=== PATIENT | male | born 1960 | race Caucasian/White ===

== ENCOUNTER → 2019-01-24 | Outpatient (CLI) | payer SELFPAY ==
[~2019-01-24] MED LIST: DICL50TA4 PO
--- NOTE | 2019-01-24 12:26 | Diagnostic Imaging Report ---
PROCEDURE: CT urinary tract, rule out kidney stone. TECHNIQUE: Multiple contiguous axial images were obtained through the abdomen and pelvis without the use of intravenous contrast. Auto Exposure Controls were utilized during the CT exam to meet ALARA standards for radiation dose reduction. INDICATION: Left flank pain. No radiodense left-sided ureteral stone is found. There is some swelling at the level of left ureterovesical junction which may reflect edema from recently passed stone or could reflect a distortion owing to an underlying ureterocele. The area in question measuring 1.6 cm in diameter. The prostate is enlarged and indents the bladder base. There is mild left-sided hydroureteronephrosis. Intrarenal stone within the upper pole calyx of left kidney measured 3 mm. The unobstructed right kidney is without stone. Spleen, adrenals and pancreas are unremarkable. The gallbladder and liver unremarkable. There is no bowel obstruction. No fluid collection. IMPRESSION: 1. Mild left hydroureteronephrosis. There is an intrarenal stone in the left kidney nonobstructing. No opaque ureteral or bladder stone. Distortion of the parenchyma and morphology at the level of the left ureterovesical junction may reflect an underlying ureterocele or the sequelae of some swelling from recently passed stone. 2. Negative right kidney. No other significant abnormality. Dictated by: Dictated on workstation # [id number]
== END ==
LOC: RAD 11:50
PROVIDERS: ATTEND Nurse Practitioner Family
DX: N13.2 Hydronephrosis with renal and ureteral calculous obstruction (principal)
CPT/HCPCS: 74176

== ENCOUNTER → 2021-04-14 | Outpatient (CLI) | payer SELFPAY ==
--- NOTE | 2021-04-14 15:50 | Diagnostic Imaging Report ---
EXAMINATION: CT abdomen and pelvis without contrast. TECHNIQUE: Multiple contiguous axial images were obtained through the abdomen and pelvis without the use of intravenous contrast. All CT scans use one or more of the following dose optimizing techniques: automated exposure control, MA and/or KvP adjustment based on patient size and exam type or iterative reconstruction. HISTORY: Hematuria COMPARISON: 01/24/2019 FINDINGS: Limited views of the lower thorax are unremarkable. The liver is normal without focal lesion. There is no biliary ductal dilation. Gallbladder is normal. Pancreas is normal. Spleen is normal. Adrenal glands are normal. There is severe left hydroureteronephrosis. No obstructing stone is seen. There is a 4.8 x 3.1 cm mass-like nodule near the trigone of the bladder obstructing the left ureteral orifice. Right kidney is normal. Visualized bowel is normal in caliber without obstruction or inflammation. No free fluid or air. No abdominal or pelvic lymphadenopathy. Aorta is normal in caliber without aneurysm. There are no suspicious osseus lesions. IMPRESSION: 1. Severe left hydroureteronephrosis due to an obstructing mass-like lesion at the left ureteral orifice concerning for a bladder malignancy. Cystoscopy recommended for further evaluation. Report given to nurse (Mariluz) at 3:49 PM 04/14/2021/cb Report faxed to Dr. Caceres at 3:49 PM 04/14/2021/cb Dictated by: Dictated on workstation # [id number]
== END ==
LOC: RAD 14:52
PROVIDERS: ATTEND Urology
DX: N13.1 Hydronephrosis with ureteral stricture, not elsewhere classified (principal); Z87.442 Personal history of urinary calculi
CPT/HCPCS: 74176

== ENCOUNTER → 2021-08-23 | Outpatient (CLI) | payer OTHER ==
[~2021-08-23] MED LIST changes: +CATHETER FLUSH 10 ML SYR IV PRN; +HOLD METFORMIN - RECEIVED CONTRAST 20 ML VIAL IV SCH; +IOHEXOL 350 MG/ML 100 ML (OMNIPAQUE 350) VIAL IV ONE; +NS 100 ML (IVPB) BAG IV ONE
--- NOTE | 2021-08-23 13:53 | Diagnostic Imaging Report ---
Procedure: CT chest with contrast, CT abdomen and pelvis with and without contrast. Technique: Pre and post intravenous contrast axial imaging of the abdomen and pelvis and post contrast axial imaging of the chest were performed. Auto Exposure Controls were utilized during the CT exam to meet ALARA standards for radiation dose reduction. Date: August 23, 2021. Indication: 61-year-old male, history of urinary bladder cancer. Evaluation for metastatic disease. Comparison: CT abdomen and pelvis April 14, 2021. CT abdomen and pelvis June 22, 2021. CT chest April 14, 2016. CT chest, abdomen and pelvis May 24, 2021. Findings: There are mild upper lobe predominant findings of centrilobular emphysema. There is a 4 mm calcified right upper lobe granuloma on axial image 70. There is a partially calcified pleural-based right upper lobe pulmonary nodule measuring 7 mm in size on axial image 77. There is a pleurally based noncalcified right lower lobe pulmonary nodule measuring 8 mm in size on axial image 113. This is unchanged since May 24, 2021. There is a 6 mm pleural-based left upper lobe pulmonary nodule on axial image 77 which is unchanged. There is an additional 6 mm pleural-based unchanged left upper lobe pulmonary nodule on axial image 99. There is a stable 5 mm left upper lobe pulmonary nodule on axial image 41. There is no new or enlarging pulmonary nodule. There is no otherwise noted focal airspace consolidation. There is no pneumothorax. There is no pleural effusion. The central airways are patent. There are calcified right hilar and subcarinal lymph nodes. There is no noncalcified abnormally enlarged mediastinal, hilar, or axillary lymph node meeting CT size criteria for adenopathy. The heart is not enlarged. There is no pericardial effusion. There is no identified central pulmonary embolus. The liver is unremarkable in size and contour. There is a low-attenuation lesion in the left lobe of liver on axial image 118 which measures 1.1 m in size. Internal attenuation is technically indeterminate 22 Hounsfield units. This is unchanged since comparison exam and previously had an internal attenuation value diagnostic for a benign cyst. The gallbladder is unremarkable. No biliary ductal dilation. The main pancreatic duct is not abnormally dilated. Unremarkable appearance of the pancreatic parenchyma. The spleen is not enlarged. The adrenal glands are unremarkable. There is a left urostomy tube. There is no faviola hydronephrosis. There is an irregular mass along the posterior and left-sided urinary bladder measuring approximately 7.4 x 4.6 cm in axial dimension. The left-sided nephrostomy tube is newly placed since May 24, 2021. There is a large volume colonic stool. The colon is mildly distended. There is no free intraperitoneal air. There is no drainable fluid collection. There is no free pelvic fluid. There are atherosclerotic calcifications. There is a left retroperitoneal lymph node on axial image 145 measuring 12 mm in short axis. There is a 2 mm sclerotic lesion of the right inferior pubic ramus which is indeterminate on axial image 249. This does appear unchanged. There is osteoarthritis of both hips. There is a 5 mm sclerotic lesion of the left iliac bone which is unchanged in axial image 201. There is a sclerotic lesion in the left humeral head on axial image 17 measuring 5 mm in size which is technically indeterminate although appears very high in attenuation and is suspected to most likely reflect a benign bone island. The additional sclerotic bone lesions mentioned above are stable since at least January 24, 2019. Impression: 1. Large mass in the urinary bladder consistent with provided history of urinary bladder malignancy. This appears notably increased in size since May 24, 2021. 2. 12 mm short axis left retroperitoneal lymph node which is indeterminate although concerning for metastatic rodrigo disease. 3. Interval placement of left-sided nephrostomy tube. 4. Very small sclerotic lesions of the left iliac bone and right inferior pubic ramus which are indeterminate although stable since January 24, 2019. 5. Stable multiple bilateral pulmonary nodules. No new or enlarging pulmonary nodule. Dictated by: Dictated on workstation # [id number]
--- NOTE | 2021-08-23 15:04 | Diagnostic Imaging Report ---
INDICATION: Bladder neoplasm. Patient was administered 24.7 mCi technetium 99m MDP intravenously and whole-body imaging was performed after a three-hour delay. No prior bone scans are available for comparison. There is normal uptake of activity by the axial and appendicular skeleton. There is uptake by both kidneys with excretion to urinary bladder. No suspicious uptake is identified to suggest osseous metastatic disease. IMPRESSION: No scintigraphic evidence of osseous metastatic disease. Dictated by: Dictated on workstation # [id number]
== END ==
LOC: CARD 11:00
PROVIDERS: ATTEND Internal Medicine Hematology & Oncology
DX: C67.9 Malignant neoplasm of bladder, unspecified (principal); R91.8 Other nonspecific abnormal finding of lung field; M89.9 Disorder of bone, unspecified
CPT/HCPCS: 71260; 74178; 78306; A9503

== ENCOUNTER 2021-08-31 05:38 | Outpatient (CLI) | payer SELFPAY ==
[~2021-08-31] VITALS: Ht 185.5 cm; Wt 75.9 kg
[~2021-08-31 05:38] MED LIST changes: -CATHETER FLUSH 10 ML SYR IV PRN; -HOLD METFORMIN - RECEIVED CONTRAST 20 ML VIAL IV SCH; -IOHEXOL 350 MG/ML 100 ML (OMNIPAQUE 350) VIAL IV ONE; -NS 100 ML (IVPB) BAG IV ONE
[2021-08-31] MEDS ORDERED: CIPR-225 PO (09:55)
[2021-09-01] MEDS ORDERED: ACHD5005 PO (10:15)
== END 2021-08-31 10:14 | disposition home or self-care (01) ==
LOC: PREOP 05:38
PROVIDERS: ATTEND Surgery
DX: Z01.818 Encounter for other preprocedural examination (principal)

== ENCOUNTER 2021-09-01 10:02 | Day surgery (SDC) | payer OTHER ==
[2021-09-01] VITALS (8 sets, daily range): BP systolic 124–146; BP diastolic 75–87
[~2021-09-01] VITALS: Ht 185.5 cm; Wt 75.9 kg
[~2021-09-01 10:02] MED LIST changes: +CIPR-225 PO
[2021-09-01] MEDS ORDERED: morphine INJ 10 MG/ML 1ML (SYR OR VIAL) IVP PRN (10:15)
[2021-09-01] MEDS ORDERED: HYDROcodone/APAP 5 MG/325 MG (LORTAB) TAB PO ONE (10:15)
[2021-09-01] MEDS ORDERED: CLINDAMYCIN 600 MG/50 ML IVPB 50 ML IV ONE (10:15)
[2021-09-01] MEDS ORDERED: ONDANSETRON 4 MG/2 ML (SDV) Z0FRAN IVP PRN ×2 (10:15→12:45)
[2021-09-01] MEDS ORDERED: ACHD5005 PO (10:15)
[2021-09-01] MEDS ORDERED: LACTATED RINGERS 1,000 ML IV PRN (10:15)
[2021-09-01] MEDS ORDERED: ACETAMINOPHEN 325 MG TABLET PO PRN (10:15)
--- NOTE | 2021-09-01 10:16 | Discharge Inst-Surgical ---
D/C Lap Instructions-KIDO Reconcile Patient Problems Problems Reviewed?: Yes New, Converted, or Re-Newed RX: RX on Chart Follow Up Appt as needed Activity as tolerated No driving for 24 hours No driving while on pain medications Incentive Spirometry use every 2 hours while awake Regular Diet Symptoms to Report: Fever over 101 degree F, Nausea/Vomiting Infection Signs and Symptoms to report: Increased redness, Foul odor of wound, Increased drainage Bathing instructions: May shower Operative Area Clean/Dry; Keep incision clean/dry If any problems/questions: Contact your physician or go to Emergency Room JEEVAN GRANT APRN Sep 01, 2021 10:16
--- NOTE | 2021-09-01 10:17 | Progress Note-Pre Operative ---
Pre-Operative Progress Note H&P Reviewed The H&P was reviewed, patient examined and no changes noted. Date Seen by Provider: Sep 01, 2021 Time Seen by Provider: 10:15 Date H&P Reviewed: Sep 01, 2021 Time H&P Reviewed: 10:10 Pre-Operative Diagnosis: Bladder cancer JEEVAN GRANT APRN Sep 01, 2021 10:17
[2021-09-01] MEDS ORDERED: LIDOCAINE/EPI 1%-1:100,000 (XYLOCAINE) 20ML ONE (10:57)
[2021-09-01] MEDS ORDERED: HEParin (CENTRAL IV FLUSH) 500 UNIT/5 ML SYR ONE (10:57)
[2021-09-01] MEDS ORDERED: 0.9% SODIUM CHLORIDE PF INJ 20 ML VIAL ONE (10:57)
[2021-09-01] MEDS ORDERED: fentaNYL INJ 100 MCG/2 ML AMP ONE (11:21)
[2021-09-01] MEDS ORDERED: PROPOFOL INJECTION 50 ML IV ONE (11:21)
[2021-09-01] MEDS ORDERED: MIDAZOLAM 2 MG/2 ML (VERSED) VIAL ONE (11:22)
[2021-09-01] MEDS ORDERED: morphine INJ 10 MG/ML 1ML (SYR OR VIAL) IVP ONE (12:45)
[2021-09-01] MEDS ORDERED: MEPERIDINE (DEMEROL) INJ 50 MG/ML IVP ONE (12:45)
--- NOTE | 2021-09-01 13:18 | Diagnostic Imaging Report ---
INDICATION: POST GROSHONG PLACEMENT. COMPARISON: None FINDINGS: Single frontal view of the chest demonstrates normal heart size and pulmonary vascularity. The lungs are well aerated and clear. No large pleural effusion or pneumothorax is seen. The visualized osseous structures show no acute abnormalities. Left subclavian Port-A-Cath is identified with tip in the lower SVC. IMPRESSION: 1. Left-sided subclavian Port-A-Cath. No pneumothorax. Dictated by: Dictated on workstation # [id number]
--- NOTE | 2021-09-01 13:53 | Diagnostic Imaging Report ---
INDICATION: Fluoroscopy for Groshong catheter placement. TIME OF EXAM: 12:31 PM Fluoroscopy was provided in the OR during Groshong catheter placement. 9 seconds of fluoroscopic time was utilized. Single image was obtained showing a Groshong catheter overlying the SVC right atrial junction. IMPRESSION: Fluoroscopy for Groshong catheter placement. Dictated by: Dictated on workstation # [id number]
--- NOTE | 2021-09-01 17:07 | OPERATIVE REPORT ---
DATE OF SERVICE: 09/01/2021 PREOPERATIVE DIAGNOSIS: Bladder cancer. POSTOPERATIVE DIAGNOSIS: Bladder cancer. PROCEDURE: Placement of left subclavian Groshong implantable catheter under fluoroscopy. SURGEON: Sana Draper MD. SET UP / OPERATOR: Teja Burgess APRN. ANESTHESIA: Monitored anesthesia care with local. ESTIMATED BLOOD LOSS: Minimal. FINDINGS: Catheter tip at superior vena caval -- right atrial junction. DISPOSITION: The patient tolerated the procedure well. INDICATIONS: The patient is a 61-year-old male in need of a Groshong implantable catheter for chemotherapy. He was diagnosed with a bladder cancer in the past two months and did undergo cystoscopy and tumor removal. He has been seeing a different oncologist and different options were given and he decided to proceed with chemotherapy and radiation. DESCRIPTION OF PROCEDURE: The patient was brought to the operating room, laid supine on the table. After adequate IV pain and sedative medications and monitored anesthesia care, the chest and neck were prepped and draped in standard surgical fashion. A 1% lidocaine with epinephrine was then used to anesthetize the overlying skin in the left subclavian region. The left subclavian vein was then cannulated with drawing of venous blood. The guidewire was then inserted under fluoroscopy. A skin incision was then made using a 15 blade and the dilator and sheath were then placed over the guidewire. The guidewire and the dilator were then removed and the Groshong catheter placed through the sheath until the catheter tip was at the superior vena caval -- right atrial junction. The inner wire within the catheter was then removed and the catheter cut down to size and port placed onto the catheter. The chest reservoir was then created by extending the skin incision laterally and a plane created between the subcutaneous fat and anterior pectoralis fascia. Good hemostasis was observed. The port was then placed onto the catheter. The port was then placed into the reservoir and sutured to the anterior pectoralis fascia using interrupted 3-0 Vicryl sutures. The subcutaneous tissue was then reapproximated using 3-0 Vicryl interrupted sutures. Skin was closed using 4-0 Monocryl running subcuticular suture. Wounds were then cleaned and covered with Dermabond. The patient tolerated the procedure well. We will get a post-procedure chest x-ray once confirmation of placement of the port may be accessed and used any time. Job ID: [id number] DocumentID: [id number] Dictated Date: 09/01/2021 12:31:52 It Web Development Consultant Date: 09/01/2021 17:06:24 Dictated By: SANA DRAPER MD
== END 2021-09-01 14:30 | disposition home or self-care (01) ==
LOC: SDC 10:02
PROVIDERS: ATTEND Surgery
DX: C67.9 Malignant neoplasm of bladder, unspecified (principal); F17.210 Nicotine dependence, cigarettes, uncomplicated; Z90.89 Acquired absence of other organs; Z79.899 Other long term (current) drug therapy
CPT/HCPCS: 36561; 71045; 76000; 87081; C1788

== ENCOUNTER → 2021-09-13 | Outpatient (CLI) | payer OTHER ==
[~2021-09-13] MED LIST changes: +ACHD5005 PO
--- NOTE | 2021-09-13 13:54 | Diagnostic Imaging Report ---
INDICATION: Bladder cancer. TECHNIQUE: Serum blood glucose level at the time of injection is 93 mg/dL. Patient was administered 12.9 mCi F-18 FDG intravenously in the left antecubital location and whole body PET imaging was performed. Noncontrast CT was also performed for attenuation correction and anatomic correlation. COMPARISON: No prior PET/CT studies available for comparison. Comparison is made with an outside CT from 05/24/2021. FINDINGS: There is symmetric activity throughout the brain. Soft tissues of the neck are unremarkable. No mediastinal or hilar hypermetabolism is identified. No pulmonary parenchymal hypermetabolism is identified. Abdomen and pelvis demonstrates physiologic activity throughout the GI and tracts. There is activity in the urinary tracts and bladder which does limit evaluation of the urinary tracts. The associated noncontrast CT portion of the study does show some bladder wall thickening and increased density in the bladder which could represent patient's known bladder neoplasm. There is a small area of hypermetabolism along the anterior and slightly lateral to the left portion of the bladder which shows SUV max of 4.5. This appears to represent a lymph node adjacent to the bladder. A second node just inferior to this is also present which does show some activity. No other hypermetabolic lymph nodes are identified. Specifically, the prominent lymph node in the central retroperitoneum left periaortic location on recent CT study from 08/23/2021 does not show FDG avidity. Bilateral lower extremities are unremarkable. IMPRESSION: There appear to be two hypermetabolic lymph nodes adjacent to the urinary bladder anteriorly and to the left, concerning for metastatic lymph nodes. There is also bladder wall thickening and increased density in the bladder consistent with patient's known bladder neoplasm. There is a left-sided nephrostomy tube in place. No other significant abnormality is detected. Specifically, the left periaortic retroperitoneal lymph node noted on CT study from 08/23/2021 does not demonstrate FDG avidity. Dictated by: Dictated on workstation # [id number]
== END ==
LOC: RAD 09:00
PROVIDERS: ATTEND Nurse Practitioner Family
DX: C67.9 Malignant neoplasm of bladder, unspecified (principal); Z93.6 Other artificial openings of urinary tract status
CPT/HCPCS: 78816; A9552

== ENCOUNTER 2021-10-25 10:42 | Outpatient (RCR) | payer OTHER ==
[2021-08-16 10:14] LABS: BASOPHILS # (AUTO) 0.1 10^3/uL (0.0-0.1); BASOPHILS % (AUTO) 1 % (0-10); EOSINOPHILS # (AUTO) 0.2 10^3/uL (0.0-0.3); EOSINOPHILS % (AUTO) 2 % (0-10); HEMATOCRIT 40 % (40-54); HEMOGLOBIN 13.4 g/dL (13.3-17.7); LYMPHOCYTES # (AUTO) 1.9 10^3/uL (1.0-4.0); LYMPHOCYTES % (AUTO) 23 % (12-44); MEAN CORPUSCULAR HEMOGLOBIN 31 pg (25-34); MEAN CORPUSCULAR HGB CONC 34 g/dL (32-36); MEAN CORPUSCULAR VOLUME 92 fL (80-99); MEAN PLATELET VOLUME 9.5 fL (9.0-12.2); MONOCYTES # (AUTO) 0.8 10^3/uL (0.0-1.0); MONOCYTES % (AUTO) 10 % (0-12); NEUTROPHILS # (AUTO) 5.2 10^3/uL (1.8-7.8); NEUTROPHILS % (AUTO) 64 % (42-75); PLATELET COUNT 361 10^3/uL (130-400); WHITE BLOOD COUNT 8.1 10^3/uL (4.3-11.0)
[2021-08-16 10:33] LABS: ALBUMIN 4.2 GM/DL (3.2-4.5); BILIRUBIN,TOTAL 0.4 MG/DL (0.1-1.0); CALCIUM 10.3 MG/DL (8.5-10.1); CREATININE SERUM 1.31 MG/DL (0.60-1.30); POTASSIUM 4.6 MMOL/L (3.6-5.0); TOTAL PROTEIN 7.8 GM/DL (6.4-8.2)
[2021-08-16 10:36] LABS: BILIRUBIN,URINE NEGATIVE (NEGATIVE); CLARITY,URINE CLOUDY; COLOR,URINE YELLOW; GLUCOSE, URINE (UA) NEGATIVE (NEGATIVE); KETONES,URINE NEGATIVE (NEGATIVE); LEUKOCYTE ESTERASE ,URINE 3+ (NEGATIVE); NITRITE,URINE POSITIVE (NEGATIVE); PH,URINE 7.5 (5-9); PROTEIN,URINE 2+ (NEGATIVE)
[2021-08-16 10:42] LABS: BACTERIA,URINE MODERATE /HPF; RBC,URINE >100 /HPF; WBC,URINE >100 /HPF
[2021-09-20 15:17] LABS: BASOPHILS # (AUTO) 0.1 10^3/uL (0.0-0.1); BASOPHILS % (AUTO) 1 % (0-10); EOSINOPHILS # (AUTO) 0.4 10^3/uL (0.0-0.3); EOSINOPHILS % (AUTO) 5 % (0-10); HEMATOCRIT 40 % (40-54); HEMOGLOBIN 13.1 g/dL (13.3-17.7); LYMPHOCYTES # (AUTO) 1.6 10^3/uL (1.0-4.0); LYMPHOCYTES % (AUTO) 20 % (12-44); MEAN CORPUSCULAR HEMOGLOBIN 30 pg (25-34); MEAN CORPUSCULAR HGB CONC 33 g/dL (32-36); MEAN CORPUSCULAR VOLUME 92 fL (80-99); MEAN PLATELET VOLUME 9.6 fL (9.0-12.2); MONOCYTES # (AUTO) 0.9 10^3/uL (0.0-1.0); MONOCYTES % (AUTO) 11 % (0-12); NEUTROPHILS % (AUTO) 63 % (42-75); PLATELET COUNT 323 10^3/uL (130-400); WHITE BLOOD COUNT 7.9 10^3/uL (4.3-11.0)
[2021-09-20 15:38] LABS: ALBUMIN 4.1 GM/DL (3.2-4.5); BILIRUBIN,TOTAL 0.3 MG/DL (0.1-1.0); CALCIUM 10.1 MG/DL (8.5-10.1); CREATININE SERUM 1.48 MG/DL (0.60-1.30); TOTAL PROTEIN 7.6 GM/DL (6.4-8.2)
[2021-09-20 16:15] LABS: MAGNESIUM 2.2 MG/DL (1.6-2.4)
[2021-09-26 11:36] LABS: BASOPHILS # (AUTO) 0.1 10^3/uL (0.0-0.1); BASOPHILS % (AUTO) 1 % (0-10); EOSINOPHILS # (AUTO) 0.4 10^3/uL (0.0-0.3); EOSINOPHILS % (AUTO) 4 % (0-10); HEMATOCRIT 38 % (40-54); HEMOGLOBIN 12.9 g/dL (13.3-17.7); LYMPHOCYTES # (AUTO) 1.3 10^3/uL (1.0-4.0); LYMPHOCYTES % (AUTO) 14 % (12-44); MEAN CORPUSCULAR HEMOGLOBIN 31 pg (25-34); MEAN CORPUSCULAR HGB CONC 34 g/dL (32-36); MEAN CORPUSCULAR VOLUME 92 fL (80-99); MEAN PLATELET VOLUME 9.5 fL (9.0-12.2); MONOCYTES # (AUTO) 0.7 10^3/uL (0.0-1.0); MONOCYTES % (AUTO) 8 % (0-12); NEUTROPHILS # (AUTO) 6.7 10^3/uL (1.8-7.8); NEUTROPHILS % (AUTO) 73 % (42-75); PLATELET COUNT 295 10^3/uL (130-400); WHITE BLOOD COUNT 9.2 10^3/uL (4.3-11.0)
[2021-09-26 11:57] LABS: BILIRUBIN,TOTAL 0.3 MG/DL (0.1-1.0); CALCIUM 9.7 MG/DL (8.5-10.1); CREATININE SERUM 1.24 MG/DL (0.60-1.30); POTASSIUM 4.3 MMOL/L (3.6-5.0); TOTAL PROTEIN 7.5 GM/DL (6.4-8.2)
[2021-09-26 12:17] LABS: MAGNESIUM 2.1 MG/DL (1.6-2.4)
[2021-10-03 11:29] LABS: BASOPHILS # (AUTO) 0.1 10^3/uL (0.0-0.1); BASOPHILS % (AUTO) 1 % (0-10); EOSINOPHILS # (AUTO) 0.5 10^3/uL (0.0-0.3); EOSINOPHILS % (AUTO) 6 % (0-10); HEMATOCRIT 37 % (40-54); HEMOGLOBIN 12.6 g/dL (13.3-17.7); LYMPHOCYTES % (AUTO) 13 % (12-44); MEAN CORPUSCULAR HEMOGLOBIN 31 pg (25-34); MEAN CORPUSCULAR HGB CONC 34 g/dL (32-36); MEAN CORPUSCULAR VOLUME 91 fL (80-99); MEAN PLATELET VOLUME 9.7 fL (9.0-12.2); MONOCYTES # (AUTO) 0.9 10^3/uL (0.0-1.0); MONOCYTES % (AUTO) 11 % (0-12); NEUTROPHILS # (AUTO) 5.8 10^3/uL (1.8-7.8); NEUTROPHILS % (AUTO) 70 % (42-75); PLATELET COUNT 319 10^3/uL (130-400); WHITE BLOOD COUNT 8.3 10^3/uL (4.3-11.0)
[2021-10-03 11:46] LABS: CALCIUM 9.7 MG/DL (8.5-10.1); CREATININE SERUM 1.31 MG/DL (0.60-1.30); POTASSIUM 4.1 MMOL/L (3.6-5.0)
[2021-10-10 11:20] LABS: BASOPHILS % (AUTO) 1 % (0-10); EOSINOPHILS # (AUTO) 0.3 10^3/uL (0.0-0.3); EOSINOPHILS % (AUTO) 4 % (0-10); HEMATOCRIT 38 % (40-54); LYMPHOCYTES # (AUTO) 0.6 10^3/uL (1.0-4.0); LYMPHOCYTES % (AUTO) 9 % (12-44); MEAN CORPUSCULAR HEMOGLOBIN 31 pg (25-34); MEAN CORPUSCULAR HGB CONC 34 g/dL (32-36); MEAN CORPUSCULAR VOLUME 91 fL (80-99); MEAN PLATELET VOLUME 9.4 fL (9.0-12.2); MONOCYTES # (AUTO) 0.7 10^3/uL (0.0-1.0); MONOCYTES % (AUTO) 10 % (0-12); NEUTROPHILS # (AUTO) 5.3 10^3/uL (1.8-7.8); NEUTROPHILS % (AUTO) 76 % (42-75); PLATELET COUNT 271 10^3/uL (130-400); WHITE BLOOD COUNT 7.1 10^3/uL (4.3-11.0)
[2021-10-10 11:43] LABS: CALCIUM 9.4 MG/DL (8.5-10.1); CREATININE SERUM 1.05 MG/DL (0.60-1.30)
[2021-10-17 11:22] LABS: BASOPHILS # (AUTO) 0.1 10^3/uL (0.0-0.1); BASOPHILS % (AUTO) 1 % (0-10); EOSINOPHILS # (AUTO) 0.3 10^3/uL (0.0-0.3); EOSINOPHILS % (AUTO) 6 % (0-10); HEMATOCRIT 37 % (40-54); HEMOGLOBIN 12.5 g/dL (13.3-17.7); LYMPHOCYTES # (AUTO) 0.6 10^3/uL (1.0-4.0); LYMPHOCYTES % (AUTO) 12 % (12-44); MEAN CORPUSCULAR HEMOGLOBIN 31 pg (25-34); MEAN CORPUSCULAR HGB CONC 34 g/dL (32-36); MEAN CORPUSCULAR VOLUME 92 fL (80-99); MEAN PLATELET VOLUME 9.3 fL (9.0-12.2); MONOCYTES # (AUTO) 0.7 10^3/uL (0.0-1.0); MONOCYTES % (AUTO) 13 % (0-12); NEUTROPHILS # (AUTO) 3.4 10^3/uL (1.8-7.8); NEUTROPHILS % (AUTO) 68 % (42-75); PLATELET COUNT 289 10^3/uL (130-400)
[2021-10-17 13:18] LABS: ALBUMIN 3.8 GM/DL (3.2-4.5); BILIRUBIN,TOTAL 0.2 MG/DL (0.1-1.0); CALCIUM 9.4 MG/DL (8.5-10.1); CREATININE SERUM 0.98 MG/DL (0.60-1.30); POTASSIUM 4.2 MMOL/L (3.6-5.0); TOTAL PROTEIN 6.9 GM/DL (6.4-8.2)
[2021-10-24 11:29] LABS: BASOPHILS # (AUTO) 0.1 10^3/uL (0.0-0.1); BASOPHILS % (AUTO) 1 % (0-10); EOSINOPHILS # (AUTO) 0.3 10^3/uL (0.0-0.3); EOSINOPHILS % (AUTO) 5 % (0-10); HEMATOCRIT 38 % (40-54); HEMOGLOBIN 12.6 g/dL (13.3-17.7); LYMPHOCYTES # (AUTO) 0.5 10^3/uL (1.0-4.0); LYMPHOCYTES % (AUTO) 9 % (12-44); MEAN CORPUSCULAR HEMOGLOBIN 31 pg (25-34); MEAN CORPUSCULAR HGB CONC 34 g/dL (32-36); MEAN CORPUSCULAR VOLUME 92 fL (80-99); MEAN PLATELET VOLUME 9.1 fL (9.0-12.2); MONOCYTES # (AUTO) 0.6 10^3/uL (0.0-1.0); MONOCYTES % (AUTO) 10 % (0-12); NEUTROPHILS # (AUTO) 4.3 10^3/uL (1.8-7.8); NEUTROPHILS % (AUTO) 75 % (42-75); PLATELET COUNT 274 10^3/uL (130-400); WHITE BLOOD COUNT 5.7 10^3/uL (4.3-11.0)
[2021-10-24 11:47] LABS: CALCIUM 9.5 MG/DL (8.5-10.1); CREATININE SERUM 1.04 MG/DL (0.60-1.30); POTASSIUM 4.2 MMOL/L (3.6-5.0)
[~2021-10-25] VITALS: Ht 182.9 cm; Wt 76.7 kg
[~2021-10-25 10:42] MED LIST changes: +CISPLATIN IV SCH; +FAMOTIDINE 20MG/2ML IV (CANCER CTR) IV SCH; +FOSAPREPITANT (CANCER CENTER) 150 MG in NS (IVPB) CANCER CENTER ONLY 150 ML IV SCH; +MANNITOL IV SCH; +NS IV 1000 ML (CANCER CTR) IV SCH; +ONDANSETRON IV ONE; +[UNRECOGNIZED DRUG - OTHER] IV ONE; +[UNRECOGNIZED DRUG - OTHER] IV SCH; +[UNRECOGNIZED DRUG - OTHER] IV SCH; +[UNRECOGNIZED DRUG - OTHER] IV SCH; +diphenhydrAMINE 25 MG TAB (BENADRYL) CANCER CENTER PO SCH
== END 2021-10-28 | disposition home or self-care (01) ==
LOC: ONC 10:42
PROVIDERS: ATTEND Internal Medicine Hematology & Oncology
DX: Z51.0 Encounter for antineoplastic radiation therapy (principal); Z51.11 Encounter for antineoplastic chemotherapy; C67.9 Malignant neoplasm of bladder, unspecified; R82.998 Other abnormal findings in urine
CPT/HCPCS: 80053; 81000; 85025; 87077; 87088; 87186; G0463; 36591; 77300; 77301; 77334; 77336; 77338; 77386; 77470; 80048; 83735; 96360; 96367; 96375; 96411; 96413; 99204; 99213; 99214

== ENCOUNTER 2021-11-10 09:10 | Outpatient (RCR) | payer OTHER ==
[2021-11-01] MEDS: CEFEPIME 2,000 MG/NS 50 ML IVPB IV SCH ×4 (09:45→20:50)
[2021-11-01 10:00] VITALS: BP 114/83
[2021-11-01 20:50] VITALS: BP 129/58
[2021-11-02] MEDS: CEFEPIME 2,000 MG/NS 50 ML IVPB IV SCH ×4 (09:02→20:53)
[2021-11-02 09:15] VITALS: BP 128/88
[2021-11-02 20:44] VITALS: BP 111/68
[2021-11-02 20:45] VITALS: BP 111/68
[2021-11-03 09:00] VITALS: BP 129/79
[2021-11-03] MEDS: CEFEPIME 2,000 MG/NS 50 ML IVPB IV SCH ×4 (09:10→21:25)
[2021-11-03 21:25] VITALS: BP 121/66
[2021-11-04 09:05] VITALS: BP 116/83
[2021-11-04] MEDS: CEFEPIME 2,000 MG/NS 50 ML IVPB IV SCH ×4 (09:20→20:51)
[2021-11-04 20:41] VITALS: BP 126/59
[2021-11-05 08:30] VITALS: BP 125/77
[2021-11-05] MEDS: CEFEPIME 2,000 MG/NS 50 ML IVPB IV SCH ×4 (09:11→20:41)
[2021-11-05 20:35] VITALS: BP 116/65
[2021-11-06] MEDS: CEFEPIME 2,000 MG/NS 50 ML IVPB IV SCH ×4 (08:52→20:47)
[2021-11-06 10:46] VITALS: BP 121/67
[2021-11-06 21:36] VITALS: BP 131/78
[2021-11-07] MEDS: CEFEPIME 2,000 MG/NS 50 ML IVPB IV SCH ×2 (09:07)
[2021-11-07 09:40] VITALS: BP 119/79
[2021-11-07 21:32] VITALS: BP 112/61
[2021-11-08 09:00] VITALS: BP 118/60
[2021-11-08] MEDS: CEFEPIME 2,000 MG/NS 50 ML IVPB IV SCH ×4 (09:16→20:53)
[2021-11-08 21:35] VITALS: BP 124/69
[2021-11-09] MEDS: CEFEPIME 2,000 MG/NS 50 ML IVPB IV SCH ×4 (08:55→21:03)
[2021-11-09 09:03] VITALS: BP 113/85
[2021-11-09 21:36] VITALS: BP 114/72
[~2021-11-10] VITALS: Ht 185.5 cm; Wt 75.9 kg
[~2021-11-10 09:10] MED LIST changes: -CISPLATIN IV SCH; -FAMOTIDINE 20MG/2ML IV (CANCER CTR) IV SCH; -FOSAPREPITANT (CANCER CENTER) 150 MG in NS (IVPB) CANCER CENTER ONLY 150 ML IV SCH; -MANNITOL IV SCH; -NS IV 1000 ML (CANCER CTR) IV SCH; -ONDANSETRON IV ONE; -[UNRECOGNIZED DRUG - OTHER] IV ONE; -[UNRECOGNIZED DRUG - OTHER] IV SCH; -[UNRECOGNIZED DRUG - OTHER] IV SCH; -[UNRECOGNIZED DRUG - OTHER] IV SCH; -diphenhydrAMINE 25 MG TAB (BENADRYL) CANCER CENTER PO SCH
[2021-11-10] MEDS: CEFEPIME 2,000 MG/NS 50 ML IVPB IV SCH ×4 (09:25→20:42)
[2021-11-10 09:40] VITALS: BP 124/78
[2021-11-10 21:23] VITALS: BP 101/63
[2021-11-23] MEDS ORDERED: HYDR-3817 PO (16:05)
[2021-11-23] MEDS ORDERED: ONDA8TAB13 PO (16:05)
== END 2021-11-28 | disposition home or self-care (01) ==
LOC: SDC 09:10
PROVIDERS: ATTEND Internal Medicine Hematology & Oncology
DX: Z51.81 Encounter for therapeutic drug level monitoring (principal)
CPT/HCPCS: 96365

== ENCOUNTER 2021-11-21 10:56 | Outpatient (RCR) | payer OTHER ==
[2021-10-31 11:10] LABS: BASOPHILS % (AUTO) 1 % (0-10); EOSINOPHILS # (AUTO) 0.2 10^3/uL (0.0-0.3); EOSINOPHILS % (AUTO) 4 % (0-10); HEMATOCRIT 36 % (40-54); HEMOGLOBIN 12.3 g/dL (13.3-17.7); LYMPHOCYTES # (AUTO) 0.4 10^3/uL (1.0-4.0); LYMPHOCYTES % (AUTO) 7 % (12-44); MEAN CORPUSCULAR HEMOGLOBIN 32 pg (25-34); MEAN CORPUSCULAR HGB CONC 34 g/dL (32-36); MEAN CORPUSCULAR VOLUME 92 fL (80-99); MONOCYTES # (AUTO) 0.7 10^3/uL (0.0-1.0); MONOCYTES % (AUTO) 13 % (0-12); NEUTROPHILS # (AUTO) 4.1 10^3/uL (1.8-7.8); NEUTROPHILS % (AUTO) 76 % (42-75); PLATELET COUNT 269 10^3/uL (130-400); WHITE BLOOD COUNT 5.5 10^3/uL (4.3-11.0)
[2021-10-31 11:27] LABS: ALBUMIN 3.9 GM/DL (3.2-4.5); BILIRUBIN,TOTAL 0.2 MG/DL (0.1-1.0); CALCIUM 9.5 MG/DL (8.5-10.1); CREATININE SERUM 0.95 MG/DL (0.60-1.30); POTASSIUM 4.1 MMOL/L (3.6-5.0); TOTAL PROTEIN 6.9 GM/DL (6.4-8.2)
[2021-10-31 22:02] VITALS: BP 115/63
[2021-11-15 12:21] LABS: BILIRUBIN,URINE NEGATIVE (NEGATIVE); CLARITY,URINE CLEAR; COLOR,URINE YELLOW; GLUCOSE, URINE (UA) NEGATIVE (NEGATIVE); KETONES,URINE NEGATIVE (NEGATIVE); LEUKOCYTE ESTERASE ,URINE 2+ (NEGATIVE); NITRITE,URINE POSITIVE (NEGATIVE); PROTEIN,URINE 2+ (NEGATIVE)
[2021-11-15 12:37] LABS: BACTERIA,URINE FEW /HPF; SQUAMOUS EPITHELIAL CELL,UR RARE /HPF; WBC,URINE 50-100 /HPF
[~2021-11-21] VITALS: Ht 185.4 cm; Wt 75.9 kg
[~2021-11-21 10:56] MED LIST changes: +CEFEPIME INJECTION 1,000 MG in NS (IVPB) 50 ML IV ONE; +CEFEPIME IV ONE; +CEFEPIME IV PRN; +CEFEPIME IV SCH; +CISPLATIN IV SCH; +FOSAPREPITANT (CANCER CENTER) 150 MG in NS (IVPB) CANCER CENTER ONLY 150 ML IV SCH; -HYDR-3817 PO; +MANNITOL IV SCH; +NS IV 1000 ML (CANCER CTR) IV SCH; +NS IV ONE; +NS IV PRN; +NS IV SCH; -ONDA8TAB13 PO; +[UNRECOGNIZED DRUG - OTHER] IV SCH
[2021-11-23] MEDS ORDERED: ONDA8TAB13 PO (16:05)
[2021-11-23] MEDS ORDERED: HYDR-3817 PO (16:05)
== END 2021-11-28 | disposition home or self-care (01) ==
LOC: ONC 10:56
PROVIDERS: ATTEND Internal Medicine Hematology & Oncology
DX: Z51.0 Encounter for antineoplastic radiation therapy (principal); C67.9 Malignant neoplasm of bladder, unspecified; N39.0 Urinary tract infection, site not specified; R91.8 Other nonspecific abnormal finding of lung field; Z93.6 Other artificial openings of urinary tract status
CPT/HCPCS: 77386; 80053; 83735; 85025; 96365; G0463 ×2; 36591; 77336; 81000; 87077; 87088; 87186; 96374; 99212; 99213

== ENCOUNTER → 2021-11-21 | Outpatient (CLI) | payer OTHER ==
[~2021-11-21] MED LIST changes: +HYDR-3817 PO; +ONDA8TAB13 PO
--- NOTE | 2021-11-21 13:01 | Diagnostic Imaging Report ---
PROCEDURE: US Renal Bilateral. TECHNIQUE: Multiple real-time grayscale images were obtained over the kidneys in various projections bilaterally. INDICATION: Malignant tumor of the bladder. FINDINGS: Right kidney measures 12.8 x 6.7 x 6.6 cm and the left kidney measures 10.7 x 4.4 x 4.6 cm. Cortical thickness and echogenicity is normal. Patient appears to have a percutaneous nephrostomy tube on the left. No hydronephrosis is seen. There is significant thickening of the posterior bladder wall. Right ureteral jet is visualized. Left ureteral jet was not visualized. IMPRESSION: No evidence of hydronephrosis. There is significant thickening of the posterior bladder wall which may account for patient's known bladder malignancy. Dictated by: Dictated on workstation # [id number]
== END ==
LOC: RAD 11:28
PROVIDERS: ATTEND Internal Medicine Hematology & Oncology
DX: C67.9 Malignant neoplasm of bladder, unspecified (principal)
CPT/HCPCS: 76770

== ENCOUNTER 2021-11-23 11:03 | Inpatient (IN) | payer OTHER ==
[~2021-11-23] VITALS: Ht 185 cm; Wt 70.4 kg
[~2021-11-23 11:03] MED LIST changes: -CEFEPIME INJECTION 1,000 MG in NS (IVPB) 50 ML IV ONE; -CEFEPIME IV ONE; -CEFEPIME IV PRN; -CEFEPIME IV SCH; -CISPLATIN IV SCH; -FOSAPREPITANT (CANCER CENTER) 150 MG in NS (IVPB) CANCER CENTER ONLY 150 ML IV SCH; -MANNITOL IV SCH; -NS IV 1000 ML (CANCER CTR) IV SCH; -NS IV ONE; -NS IV PRN; -NS IV SCH; -[UNRECOGNIZED DRUG - OTHER] IV SCH
[2021-11-23] MEDS ORDERED: KETOROLAC 30 MG/ML VIAL IVP ONE (11:30)
[2021-11-23] MEDS ORDERED: HYDROmorphone 2 MG/ML VIAL (DILAUDID) IV ONE (11:30)
[2021-11-23 11:48] LABS: BASOPHILS % (AUTO) 0 % (0-10); EOSINOPHILS % (AUTO) 0 % (0-10); HEMATOCRIT 32 % (40-54); HEMOGLOBIN 11.3 g/dL (13.3-17.7); LYMPHOCYTES # (AUTO) 0.2 X 10^3 (1.0-4.0); LYMPHOCYTES % (AUTO) 1 % (12-44); MEAN CORPUSCULAR HEMOGLOBIN 32 pg (25-34); MEAN CORPUSCULAR HGB CONC 35 g/dL (32-36); MEAN CORPUSCULAR VOLUME 92 fL (80-99); MEAN PLATELET VOLUME 8.8 fL (9.0-12.2); MONOCYTES # (AUTO) 1.8 X 10^3 (0.0-1.0); MONOCYTES % (AUTO) 9 % (0-12); NEUTROPHILS # (AUTO) 17.3 X 10^3 (1.8-7.8); NEUTROPHILS % (AUTO) 89 % (42-75); PLATELET COUNT 397 10^3/uL (130-400); WHITE BLOOD COUNT 19.4 10^3/uL (4.3-11.0)
--- NOTE | 2021-11-23 11:50 | ED GU-Male ---
General Chief Complaint: Abdominal/GI Problems Stated Complaint: ABD PAIN Nursing Triage Note: TO ED PER W/C WITH C/O ABD PAIN IS A BLADDER CANCER PATIENT. FINISHED CHEMO 2 WEEKS AGO AND RADIATION ON SUNDAY. HAS NEPHROSTOMY TUBE BACK Candido DUVAL. Source: patient Exam Limitations: no limitations History of Present Illness Date Seen by Provider: Nov 23, 2021 Time Seen by Provider: 11:45 Initial Comments To ER by his son with reports of severe left-sided abdominal pain. He has a left nephrostomy tube. He has had minimal output from this for the past week. He states that he has not had any urine output through the urethra either. His left nephrostomy tube was exchanged at [facility] about 1 month ago. He has known Pseudomonas in the urine. He completed some outpatient antibiotics twice daily. According to Dr. Becker plan as of 2 days ago was to admit him inpatient for IV fluids and meropenem. However he quit answering his phone at that time. Today as they were about to do a welfare check with [facility]'s department the patient's son arrived to the patient's house and notified the cancer center that he was in bad shape. It was recommended they bring him to the emergency room. He does report fevers and chills at home. He has known bladder cancer. He finished chemotherapy and radiation 2 weeks ago. Timing/Duration: getting worse Severity/Quality: severe Location: unknown Radiation: none Activities at Onset: none Prior Genitourinary Problems: none Associated Symptoms: denies symptoms, fever/chills Allergies and Home Medications Allergies Coded Allergies: Penicillins (Unverified Allergy, Unknown, 04/14/16) Patient Home Medication List Home Medication List Reviewed: Yes Ciprofloxacin HCl (Cipro) 500 Mg Tablet, 500 MG PO BID, (Reported) Entered as Reported by: TENZIN HUGO on 08/31/21 0910 Hydrocodone/Acetaminophen (Hydrocodone-Acetamin 5-325 mg) 1 Each Tablet, 1 TAB PO Q4H PRN for PAIN-MODERATE (5-7) Prescribed by: JEEVAN GRANT on 09/01/21 1015 Review of Systems Review of Systems Constitutional: see HPI, chills, fever, malaise, weakness EENTM: see HPI Respiratory: no symptoms reported Cardiovascular: no symptoms reported Genitourinary: see HPI, pain, other Musculoskeletal: no symptoms reported Skin: no symptoms reported Psychiatric/Neurological: No Symptoms Reported Endocrine: No Symptoms Reported Hematologic/Lymphatic: No Symptoms Reported Past Ojpwuci-Edoqhz-Xmhtyy Hx Patient Social History Tobacco Use?: Yes Tobacco type used: Cigars Substance use?: No Seasonal Allergies Seasonal Allergies: No Past Medical History Surgeries: Yes (R inguinal hernia repair; left hand, left knee ) Abdominal, Appendectomy, Bladder Surgery, Orthopedic Respiratory: No Cardiac: No Neurological: No Reproductive Disorders: No Sexually Transmitted Disease: No Genitourinary: Yes (bladder cancer) Kidney Infection, Bladder Infection Gastrointestinal: No Musculoskeletal: No Endocrine: No HEENT: No Cancer: Yes Bladder Did You Recieve Any Treatments: Yes What Type of Treatment Did You: Surgical Intervention Psychosocial: No Integumentary: No Blood Disorders: No Physical Exam Vital Signs Vital Signs - First Documented 11/23/21 11:07 Temp 37.5 Pulse 87 Resp 18 B/P (MAP) 111/69 (83) Pulse Ox 98 O2 Delivery Room Air Capillary Refill : Less Than 3 Seconds Height, Weight, BMI Height: 6'1" Weight: 170lbs. oz. 77.947131lf; 20.00 BMI Method:Stated General Appearance: WD/WN, no apparent distress HEENT: PERRL/EOMI, normal ENT inspection Neck: non-tender, full range of motion Respiratory: no respiratory distress, no accessory muscle use Gastrointestinal: normal bowel sounds, non tender, soft Back: CVA tenderness (L) Neurologic/Psychiatric: alert, normal mood/affect, oriented x 3 Skin: normal color, warm/dry Focused Exam Lactate Level 11/23/21 11:52: Lactic Acid Level 0.91 Lactic Acid Level Laboratory Tests Test 11/23/21 11:52 Lactic Acid Level 0.91 MMOL/L (0.50-2.00) Progress/Results/Core Measures Suspected Sepsis SIRS Temperature: Pulse: 87 Respiratory Rate: 18 Laboratory Tests 11/23/21 11:40: White Blood Count 19.4H Blood Pressure 111 /69 Mean: 83 11/23/21 11:52: Lactic Acid Level 0.91 Laboratory Tests 11/23/21 11:40: Creatinine 1.21, INR Comment 1.1, Platelet Count 397, Total Bilirubin 0.5 Results/Orders Lab Results Laboratory Tests Test 11/23/21 11:40 11/23/21 11:52 Range/Units White Blood Count 19.4 H 4.3-11.0 10^3/uL Red Blood Count 3.51 L 4.30-5.52 10^6/uL Hemoglobin 11.3 L 13.3-17.7 g/dL Hematocrit 32 L 40-54 % Mean Corpuscular Volume 92 80-99 fL Mean Corpuscular Hemoglobin 32 25-34 pg Mean Corpuscular Hemoglobin Concent 35 32-36 g/dL Red Cell Distribution Width 16.3 H 10.0-14.5 % Platelet Count 397 130-400 10^3/uL Mean Platelet Volume 8.8 L 9.0-12.2 fL Immature Granulocyte % (Auto) 1 % Neutrophils (%) (Auto) 89 H 42-75 % Lymphocytes (%) (Auto) 1 L 12-44 % Monocytes (%) (Auto) 9 0-12 % Eosinophils (%) (Auto) 0 0-10 % Basophils (%) (Auto) 0 0-10 % Neutrophils # (Auto) 17.3 H 1.8-7.8 X 10^3 Lymphocytes # (Auto) 0.2 L 1.0-4.0 X 10^3 Monocytes # (Auto) 1.8 H 0.0-1.0 X 10^3 Eosinophils # (Auto) 0.0 0.0-0.3 10^3/uL Basophils # (Auto) 0.0 0.0-0.1 10^3/uL Immature Granulocyte # (Auto) 0.1 0.0-0.1 10^3/uL Neutrophils % (Manual) 88 % Lymphocytes % (Manual) 1 % Monocytes % (Manual) 11 % Blood Morphology Comment NORMAL Prothrombin Time 14.7 12.2-14.7 SEC INR Comment 1.1 0.8-1.4 Sodium Level 131 L 135-145 MMOL/L Potassium Level 3.7 3.6-5.0 MMOL/L Chloride Level 96 L 98-107 MMOL/L Carbon Dioxide Level 23 21-32 MMOL/L Anion Gap 12 5-14 MMOL/L Blood Urea Nitrogen 18 7-18 MG/DL Creatinine 1.21 0.60-1.30 MG/DL Estimat Glomerular Filtration Rate 69 BUN/Creatinine Ratio 15 Glucose Level 126 H 70-105 MG/DL Calcium Level 9.6 8.5-10.1 MG/DL Corrected Calcium 9.8 8.5-10.1 MG/DL Total Bilirubin 0.5 0.1-1.0 MG/DL Aspartate Amino Transf (AST/SGOT) 9 5-34 U/L Alanine Aminotransferase (ALT/SGPT) 10 0-55 U/L Alkaline Phosphatase 52 40-136 U/L Total Protein 7.0 6.4-8.2 GM/DL Albumin 3.7 3.2-4.5 GM/DL Lactic Acid Level 0.91 0.50-2.00 MMOL/L My Orders Orders - BEHZAD CHEW APRN Cbc With Automated Diff (11/23/21 11:28) Comprehensive Metabolic Panel (11/23/21 11:28) Protime With Inr (11/23/21 11:28) Ua Culture If Indicated (11/23/21 11:28) Ed Iv/Invasive Line Start (11/23/21 11:28) Ct Abdomen/Pelvis W (11/23/21 11:28) Ketorolac Injection (Toradol Injection) (11/23/21 11:30) Hydromorphone Injection (Dilaudid Inject (11/23/21 11:30) Blood Culture (11/23/21 11:44) Lactic Acid Analyzer (11/23/21 11:44) Manual Differential (11/23/21 11:40) Meropenem (Merrem 500 Mg) (11/23/21 12:00) Ns Iv 1000 Ml (Sodium Chloride 0.9%) (11/23/21 12:00) Medications Given in ED Current Medications Medications Dose Ordered Sig/Jerad Route Start Time Stop Time Status Last Admin Dose Admin Hydromorphone HCl 0.5 mg ONCE ONCE IV 11/23/21 11:30 11/23/21 11:31 DC 11/23/21 11:57 0.5 MG Iohexol 88 ml ONCE ONCE IV 11/23/21 12:15 11/23/21 12:16 DC 11/23/21 12:13 88 ML Ketorolac Tromethamine 15 mg ONCE ONCE IVP 11/23/21 11:30 11/23/21 11:31 DC 11/23/21 11:58 15 MG Meropenem 500 mg/ Sodium Chloride 100 ml @ 200 mls/hr ONCE ONCE IV 11/23/21 12:00 11/23/21 12:29 DC 11/23/21 12:30 200 MLS/HR Sodium Chloride 10 ml NEEDED PRN IV 11/23/21 12:15 11/23/21 12:13 10 ML Sodium Chloride 100 ml ONCE ONCE IV 11/23/21 12:15 11/23/21 12:16 DC 11/23/21 12:13 80 ML Vital Signs/I&O 11/23/21 11:07 Temp 37.5 Pulse 87 Resp 18 B/P (MAP) 111/69 (83) Pulse Ox 98 O2 Delivery Room Air Capillary Refill : Less Than 3 Seconds Blood Pressure Mean: 83 Departure Impression Primary Impression: Pyelonephritis of left kidney Additional Impressions: nephrostomy tube left Bladder cancer Disposition: ADMITTED INPATIENT Condition: Stable Admissions Decision to Admit Reason: Admit from ER (General) Decision to Admit/Date: Nov 23, 2021 Time/Decision to Admit Time: 12:36 Departure-Patient Inst. Referrals: NO,LOCAL PHYSICIAN (PCP/Family) Primary Care Physician BEHZAD CHEW APRN Nov 23, 2021 11:50
[2021-11-23 11:55] LABS: ALBUMIN 3.7 GM/DL (3.2-4.5); POTASSIUM 3.7 MMOL/L (3.6-5.0)
[2021-11-23 11:56] LABS: CALCIUM 9.6 MG/DL (8.5-10.1)
[2021-11-23 11:59] LABS: BILIRUBIN,TOTAL 0.5 MG/DL (0.1-1.0); INR 1.1 (0.8-1.4); PROTHROMBIN TIME PATIENT 14.7 SEC (12.2-14.7)
[2021-11-23] MEDS ORDERED: MEROPENEM 500 MG in NS (IVPB) 100 ML IV ONE (12:00)
[2021-11-23] MEDS ORDERED: NS IV 1000 ML 1,000 ML IV SCH ×2 (12:00→20:30)
[2021-11-23 12:01] LABS: CREATININE SERUM 1.21 MG/DL (0.60-1.30)
[2021-11-23] MEDS ORDERED: HOLD METFORMIN - RECEIVED CONTRAST 20 ML VIAL IV SCH (12:15)
[2021-11-23] MEDS ORDERED: CATHETER FLUSH 10 ML SYR IV PRN (12:15)
[2021-11-23] MEDS ORDERED: IOHEXOL 350 MG/ML 100 ML (OMNIPAQUE 350) VIAL IV ONE (12:15)
[2021-11-23] MEDS ORDERED: NS 100 ML (IVPB) BAG IV ONE (12:15)
[2021-11-23 12:22] LABS: LYMPHOCYTES % (MANUAL) 1 %; MONOCYTES % (MANUAL) 11 %; NEUTROPHILS % (MANUAL) 88 %; RBC MORPH NORMAL
--- NOTE | 2021-11-23 12:40 | Diagnostic Imaging Report ---
EXAMINATION: CT abdomen and pelvis with intravenous contrast. TECHNIQUE: Multiple contiguous axial images were obtained through the abdomen and pelvis after the uneventful administration of intravenous contrast. All CT scans use one or more of the following dose optimizing techniques: automated exposure control, MA and/or KvP adjustment based on patient size and exam type or iterative reconstruction. HISTORY: Abdominal pain. Bladder cancer. COMPARISON: 08/23/2021. FINDINGS: The heart is unremarkable. Dependent opacities are seen in the right lung base. Stable focal area of hypoattenuation is seen in the left hepatic lobe measuring 1.4 cm. No enhancing hepatic lesions are seen. The portal vein is patent. The gallbladder is decompressed. Stable configuration of the nephrostomy tube on the left. No hydronephrosis is seen bilaterally. There is delayed and diminished cortical enhancement of the left kidney relative to the right. No solid renal masses seen bilaterally. The previously visualized mass within the trigone of the urinary bladder predominantly within the left lateral aspect has decreased in size compared to the prior exam and now measures approximately 7.0 x 3.2 cm, previously measuring 7.3 x 4.6 cm. The spleen, pancreas, and adrenal glands have a normal appearance. There is stable size of irregular and prominent lymph nodes in the retroperitoneum with a marker lymph node in the para-aortic station left of midline measuring 1.2 cm, previously measuring 1.2 cm. The bowel loops are nondilated. There is no free fluid or free air. No acute osseous abnormalities. There is calcified aortic and iliac atherosclerotic plaque without aneurysm. IMPRESSION: 1. Interval decrease in size in the mass within the trigone of the urinary bladder with stable enlarged retroperitoneal lymph nodes. Findings suggest treatment response and continued follow-up is recommended. 2. Delayed and diminished cortical enhancement in the left kidney relative to the right which is new compared to the prior exam. Findings may represent ischemia or infection. 3. No hydronephrosis is seen bilaterally. Stable left-sided nephrostomy tube. Dictated by: Dictated on workstation # [id number]
[2021-11-23 13:14] LABS: BILIRUBIN,URINE NEGATIVE (NEGATIVE); CLARITY,URINE SL CLOUDY; COLOR,URINE AMBER; GLUCOSE, URINE (UA) NEGATIVE (NEGATIVE); KETONES,URINE NEGATIVE (NEGATIVE); LEUKOCYTE ESTERASE ,URINE 1+ (NEGATIVE); NITRITE,URINE NEGATIVE (NEGATIVE); PROTEIN,URINE 2+ (NEGATIVE)
[2021-11-23 13:26] LABS: AMORPHOUS SEDIMENT,UR MOD AMOR URATES /LPF; BACTERIA,URINE LARGE /HPF; CALCIUM OXALATE CRYSTALS,UR FEW /LPF; WBC,URINE >100 /HPF
[2021-11-23] MEDS: LACTATED RINGERS 1,000 ML IV SCH ×2 (14:54→21:58)
[2021-11-23] MEDS ORDERED: NICOTINE 7 MG (NICODERM) PATCH TD ONE (15:00)
[2021-11-23] MEDS ORDERED: ACETAMINOPHEN 325 MG TABLET PO PRN (15:00)
[2021-11-23 15:30] VITALS: BP 140/66
[2021-11-23] MEDS ORDERED: ONDA8TAB13 PO (16:05)
[2021-11-23] MEDS ORDERED: HYDR-3817 PO (16:05)
[2021-11-23] MEDS: HYDROmorphone 2 MG/ML VIAL (DILAUDID) IVP PRN (17:07)
[2021-11-23] MEDS ORDERED: IBUPROFEN 600 MG (MOTRIN) TAB PO PRN (18:30)
[2021-11-23] MEDS: KETOROLAC 15 MG/ML VIAL IVP PRN (18:38)
--- NOTE | 2021-11-23 20:18 | History & Physical-Hospitalist ---
History of Present Illness HPI/Chief Complaint Alejandro Carbajal is a 61 year old male with stage IV bladder cancer s/p chemotherapy and radiation who presented with chills. He was found to have a urinary tract infection about a week ago. He has been on antibiotics dunia nuously for recurrent bladder infections. He has not had any abdominal or back pain. He reports urinary urgency and frequency. He has had decreased output. Source: patient Exam Limitations: no limitations Date Seen 11/23/21 Time Seen by a Provider: 18:20 Attending Physician Greer Hernandez MD PCP No,Local Physician Referring Physician Date of Admission Nov 23, 2021 at 13:04 Home Medications & Allergies Home Medications Reviewed patient Home Medication Reconciliation performed by pharmacy medication reconciliations porcelain technician and/or nursing. Patients Allergies have been reviewed. Allergies Allergies Coded Allergies Penicillins (Unverified Allergy, Unknown, 04/14/16) Past Hmdxpas-Jrxulb-Fnlghs Hx Patient Social History Tobacco Use?: Yes Tobacco type used: Cigars Smoking Status: Current Everyday Smoker Use of E-Cig and/or Vaping dev: No Substance use?: Yes Substance type: Marijuana Substance frequency: Daily Alcohol Use?: No Pt feels they are or have been: No Immunizations Up To Date First/Initial COVID19 Vaccinat: UNKNOWN Seasonal Allergies Seasonal Allergies: No Current Status Advance Directives: Yes Advance Directive Location: Home Communicates: Verbally Primary Language: Northern Irish Preferred Spoken Language: Northern Irish Is interpretation needed?: No Implanted or Applied Medical D: Port-a-cath, Other Past Medical History Surgeries: Abdominal, Appendectomy, Bladder Surgery, Orthopedic Sexually Transmitted Disease: No Kidney Infection, Bladder Infection Bladder Did You Recieve Any Treatments: Yes What Type of Treatment Did You: Surgical Intervention Blood Disorders: No Family Medical History No Pertinent Family Hx Review of Systems Constitutional: chills, fever, malaise EENTM: no symptoms reported Respiratory: no symptoms reported Cardiovascular: no symptoms reported Gastrointestinal: no symptoms reported Genitourinary: decreased output, dysuria, frequency Musculoskeletal: no symptoms reported Skin: no symptoms reported Psychiatric/Neurological: No Symptoms Reported Physical Exam Physical Exam Vital Signs Vital Signs - First Documented 11/23/21 11:07 Temp 37.5 Pulse 87 Resp 18 B/P (MAP) 111/69 (83) Pulse Ox 98 O2 Delivery Room Air Capillary Refill : Less Than 3 Seconds Height, Weight, BMI Height: 6'1" Weight: 170lbs. oz. 77.583545pg; 20.56 BMI Method:Stated General Appearance: No Apparent Distress, Moderate Distress (rigors) HEENT: PERRL/EOMI, Pharynx Normal Neck: Normal Inspection, Supple Respiratory: Lungs Clear, Normal Breath Sounds, No Respiratory Distress Cardiovascular: Regular Rate, Rhythm, No Edema, No Murmur Gastrointestinal: Normal Bowel Sounds, Non Tender, Soft Extremity: Normal Inspection, Non Tender, No Pedal Edema Neurologic/Psychiatric: Alert, Oriented x3, No Motor/Sensory Deficits Skin: Normal Color, Warm/Dry Results Results/Procedures Labs Laboratory Tests 11/23/21 11:40 Patient resulted labs reviewed. Imaging: Reviewed Imaging Report Assessment/Plan Admission Diagnosis Sepsis due to pyelonephritis Admission Status: Inpatient Order (span 2 midnights) Reason for Inpatient Admission: IV antibiotics Assessment and Plan Sepsis due to pyelonephritis Stage IV bladder cancer UA consistent with UTI Urine culture pending CT Abdomen concerning for pyelonephritis Meropenem IV fluids Oncology consullted Urology consulted DVT prophylaxis: Lovenox Diagnosis/Problems Diagnosis/Problems (1) Sepsis Status: Acute (2) Pyelonephritis of left kidney Status: Acute (3) Stage IV bladder cancer Status: Acute GREER HERNANDEZ MD Nov 23, 2021 20:18
[2021-11-23 20:24] VITALS: BP 108/60
[2021-11-23] MEDS ORDERED: ENOXAPARIN 40 MG/0.4 ML (LOVENOX) SYR SC SCH (20:45)
[2021-11-23] MEDS ORDERED: ENOXAPARIN 40 MG/0.4 ML (LOVENOX) SYR ONE (20:58)
[2021-11-23] MEDS ORDERED: NS IV 1000 ML 1,000 ML ONE (20:58)
[2021-11-23] MEDS: MEROPENEM 500 MG/NS 100 ML IVPB IV SCH ×2 (21:57)
[2021-11-23 23:37] VITALS: BP 116/64
[2021-11-24] MEDS: KETOROLAC 15 MG/ML VIAL IVP PRN ×3 (00:56→14:38)
[2021-11-24] MEDS: ONDANSETRON 4 MG/2 ML (SDV) Z0FRAN IVP PRN (01:35)
[2021-11-24 04:27] VITALS: BP 119/68
[2021-11-24] MEDS: LACTATED RINGERS 1,000 ML IV SCH ×4 (05:49→22:53)
[2021-11-24] MEDS: MEROPENEM 500 MG/NS 100 ML IVPB IV SCH ×6 (05:49→21:50)
[2021-11-24] MEDS: HYDROmorphone 2 MG/ML VIAL (DILAUDID) IVP PRN ×4 (05:55→20:47)
[2021-11-24 06:21] LABS: BASOPHILS % (AUTO) 0 % (0-10); EOSINOPHILS % (AUTO) 0 % (0-10); HEMATOCRIT 30 % (40-54); HEMOGLOBIN 10.4 g/dL (13.3-17.7); LYMPHOCYTES # (AUTO) 0.4 10^3/uL (1.0-4.0); LYMPHOCYTES % (AUTO) 3 % (12-44); MEAN CORPUSCULAR HEMOGLOBIN 32 pg (25-34); MEAN CORPUSCULAR HGB CONC 34 g/dL (32-36); MEAN CORPUSCULAR VOLUME 92 fL (80-99); MEAN PLATELET VOLUME 9.3 fL (9.0-12.2); MONOCYTES # (AUTO) 1.2 10^3/uL (0.0-1.0); MONOCYTES % (AUTO) 10 % (0-12); NEUTROPHILS # (AUTO) 10.9 10^3/uL (1.8-7.8); NEUTROPHILS % (AUTO) 86 % (42-75); PLATELET COUNT 366 10^3/uL (130-400); WHITE BLOOD COUNT 12.6 10^3/uL (4.3-11.0)
[2021-11-24 06:29] LABS: POTASSIUM 3.9 MMOL/L (3.6-5.0)
[2021-11-24 06:30] LABS: CALCIUM 8.7 MG/DL (8.5-10.1)
[2021-11-24 06:34] LABS: CREATININE SERUM 1.16 MG/DL (0.60-1.30)
[2021-11-24 08:10] VITALS: BP 105/59
[2021-11-24] MEDS: NICOTINE 7 MG (NICODERM) PATCH TD SCH (08:29)
[2021-11-24] MEDS: NICOTINE PATCH REMOVAL TP SCH (09:02)
[2021-11-24 11:32] VITALS: BP 106/61
--- NOTE | 2021-11-24 12:58 | Oncology Consultation ---
Visit Information Visit Information Date of Admission Nov 23, 2021 at 13:04 Attending Physician Greer Parikh MD Admitting Physician No,Local Physician Chief Complaint L pylorinephritis in the setting of L nephrostomy and bladder cancer Interval History Mr. Carbajal is a 61 year old white man known to me at the cancer center for the treatment of bladder cancer. He just finished his radiation treatment to the bladder and retroperitoneal lymphadenopathy, last dose 11/21/21. He had left multiple UTIs with pseudomonas A infection and has been treated with cipro, levaquin and last cefepime IV for 10 days about 2 weeks ago. His UTI symptoms reoccurs as soon as he finished the antibiotic courses. The pseuomonas now resistant to cipro/levaquin. He had nausea vomiting and urinary burning. We arranged him to get IV meropenum and urologist consultation to remove the percutaneous nephrostomy drainage tube. He had renal ultra sound evaluation and awaiting for Dr Bedoya evaluation for the possibility of removal of the catheter. Pt stated that he has majority of the urine from the drainage catheter and only small amount from the bladder. I consulted the patient on: 11/24/21 12:54 Time Seen by Provider: 10:00 Review of Systems Constitutional: chills, fever, weakness Gastrointestinal: abdominal pain, nausea, vomiting Genitourinary: decreased output Health Status Allergies Coded Allergies: Penicillins (Unverified Allergy, Unknown, 04/14/16) Home Medications Hydrocodone/Acetaminophen (Hydrocodone-Acetamin 7.5-325) 1 Each Tablet, 1 EACH PO Q4H PRN for PAIN-MODERATE (5-7), (Reported) Ondansetron (Ondansetron Odt) 8 Mg Tab.rapdis, 8 MG PO Q8H PRN for NAUSEA/VOMITING-1ST LINE, (Reported) IQL-Fhwwxk-Ytyyct Hx Patient Social History Smoking Status: Current Everyday Smoker Type Used: Cigarettes 2nd Hand Smoke Exposure: No Recent Hopitalizations: Yes (bladder surgery in april 2021) Alcohol Use?: No Substance type: Marijuana Have you traveled recently?: No Family Medical History Significant Family History: No Pertinent Family Hx Physical Exam Vital Signs Vital Signs - First Documented 11/23/21 11:07 Temp 37.5 Pulse 87 Resp 18 B/P (MAP) 111/69 (83) Pulse Ox 98 O2 Delivery Room Air Capillary Refill : Less Than 3 Seconds Height, Weight, BMI Height: 6'1" Weight: 170lbs. oz. 77.856022lp; 20.56 BMI Method:Stated General Appearance: No Apparent Distress HEENT: PERRL/EOMI Respiratory: No Accessory Muscle Use, No Respiratory Distress Cardiovascular: Regular Rate, Rhythm Gastrointestinal: Soft Genital/Rectal: Other (percutaneous drainage catheter of the left back covered with dressing. ) Data Review Labs Laboratory Tests 11/28/21 08:22 Laboratory Tests 11/26/21 03:00: Calcium Level 8.2L 11/28/21 08:22: Calcium Level 8.4L, Red Blood Count 3.13L, Hemoglobin 9.9L, Hematocrit 29L, Red Cell Distribution Width 14.9H, Platelet Count 486H, Neutrophils (%) (Auto) 76H, Lymphocytes (%) (Auto) 8L, Lymphocytes # (Auto) 0.5L, Potassium Level 3.3L Impression & Plan Impression & Plan A/P: 1. Current pseudomonas A pyelonephritis of the left in the setting of percutaneous nephrostomy catheter. 2. 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 Finished radiation 11/21/2021. 3. Leukocytosis due to infection Plan: 1. IV meropenum 1g q8hrs. 2. Dr. Caceres to possibly remove the catheter. 3. See me at the cancer center after he finishes his antibiotic course. 4. Dr Parikh to determine the hospital course and discharge plan. ELSI LOPEZ MD Nov 24, 2021 12:58
--- NOTE | 2021-11-24 13:43 | CONSULTATION REPORT ---
DATE OF SERVICE: 11/24/2021 ATTENDING PHYSICIAN: Dr. Parikh. SUMMARY: After reviewing the patient's record in the hospital and in the office, this is a 61-year-old white man known to me back in 03/2021, when he was having gross hematuria. A CT scan showed a left hydroureteronephrosis with a question mass at the ureteral orifice concerning for bladder tumor. The patient subsequently had an attempted cystoscopy at the office, but he could not tolerate it, so we were unable to really do it. He was subsequently offered referral to [facility] or . He elected apparently to go to [facility]. We lost his followup from the then, but according to him, he ended up in [facility], had resection of the bladder tumor, which was apparently found to be stage IV, had a percutaneous left nephrostomy tube to drain the kidney and received radiation therapy as well as chemotherapy by Dr. Becker. He is being admitted with UTI and possible pyelonephritis. He is on meropenem 1 gram every 8 hours, seems to respond. He is putting mostly his urine from the left nephrostomy tube, not much to do his penis. The white count on admission was 19.4. His creatinine was 1.21. I reviewed his CT scan, reviewed his history and physical; his physical examination is unchanged from it. IMPRESSION: UTI, possible pyelonephritis with history of stage IV bladder cancer treated with chemotherapy and radiation. RECOMMENDATIONS: Continue present management, IV fluids, IV antibiotic, and manage accordingly. CC: Dr. Greer Parikh - requested, unable to deliver. CC: Dr. Medeiros - william, unable to deliver. Job ID: [id number] DocumentID: [id number] Dictated Date: 11/24/2021 11:54:23 Electrical Journeyman Date: 11/24/2021 13:42:34 Dictated By: DENITA SMITH MD
[2021-11-24 15:30] VITALS: BP 121/69
[2021-11-24] MEDS ORDERED: VANCOMYCIN 1500 MG/NS 500 ML IVPB IV NR ×2 (16:00)
[2021-11-24] MEDS ORDERED: VANCOMYCIN INJECTION 0.1 MG in NS (IVPB) 250 ML IV SCH (16:00)
--- NOTE | 2021-11-24 16:02 | Progress Note - Hospitalist ---
Subjective HPI/CC On Admission Date Seen by Provider: Nov 24, 2021 Time Seen by Provider: 11:15 Alejandro Carbajal is a 61 year old male with stage IV bladder cancer s/p chemotherapy and radiation who presented with chills. He was found to have a urinary tract infection about a week ago. He has been on antibiotics continuously for recurrent bladder infections. He has not had any abdominal or back pain. He reports urinary urgency and frequency. He has had decreased output. Subjective/Events-last exam He is not having fevers or chills this morning. He is still having pain. He does not feel well. Focused Exam Lactate Level 11/23/21 11:52: Lactic Acid Level 0.91 Objective Exam Vital Signs Vital Signs Date Time Temp Pulse Resp B/P (MAP) Pulse Ox O2 Delivery O2 Flow Rate FiO2 11/24/21 11:32 37.0 76 18 106/61 (76) 98 Room Air Capillary Refill : Less Than 3 Seconds General Appearance: No Apparent Distress, WD/WN Respiratory: Lungs Clear, No Respiratory Distress Cardiovascular: Regular Rate, Rhythm, No Murmur Gastrointestinal: Normal Bowel Sounds, Soft, Tenderness Back: CVA Tenderness (L), Other (left nephrostomy tube in place) Extremity: Normal Inspection, Non Tender Neurologic/Psychiatric: Alert, No Motor/Sensory Deficits, Normal Mood/Affect Skin: Normal Color, Warm/Dry Results/Procedures Lab Laboratory Tests 11/24/21 05:50 Patient resulted labs reviewed. Imaging: Reviewed Imaging Report Assessment/Plan Assessment and Plan Assess & Plan/Chief Complaint Sepsis due to pyelonephritis Stage IV bladder cancer CT Abdomen concerning for pyelonephritis UA consistent with UTI Urine culture with Pseudomonas and Staph aureus Continue Meropenem Add Vancomycin IV fluids Oncology consullted Urology consulted DVT prophylaxis: Lovenox Diagnosis/Problems Diagnosis/Problems (1) Sepsis Status: Acute (2) Pyelonephritis of left kidney Status: Acute (3) Stage IV bladder cancer Status: Acute PERCY HERNANDEZ MD Nov 24, 2021 16:02
[2021-11-24 19:45] VITALS: BP 108/64
[2021-11-24] MEDS: ENOXAPARIN 40 MG/0.4 ML (LOVENOX) SYR SC SCH (20:47)
[2021-11-24 23:10] VITALS: BP 111/66
[2021-11-25] MEDS: HYDROmorphone 2 MG/ML VIAL (DILAUDID) IVP PRN ×3 (00:28→08:58)
[2021-11-25 03:53] VITALS: BP 105/62
[2021-11-25] MEDS: VANCOMYCIN 1 GM/NS 250 ML IVPB IV SCH ×4 (04:01→16:48)
[2021-11-25] MEDS: MEROPENEM 500 MG/NS 100 ML IVPB IV SCH ×6 (05:59→21:14)
[2021-11-25] MEDS: LACTATED RINGERS 1,000 ML IV SCH ×2 (06:59→13:57)
[2021-11-25 08:00] VITALS: BP 117/68
[2021-11-25] MEDS: NICOTINE 7 MG (NICODERM) PATCH TD SCH (08:58)
[2021-11-25] MEDS: NICOTINE PATCH REMOVAL TP SCH (08:58)
[2021-11-25 08:59] LABS: BASOPHILS % (AUTO) 0 % (0-10); EOSINOPHILS # (AUTO) 0.1 10^3/uL (0.0-0.3); EOSINOPHILS % (AUTO) 1 % (0-10); HEMATOCRIT 29 % (40-54); HEMOGLOBIN 9.8 g/dL (13.3-17.7); LYMPHOCYTES # (AUTO) 0.3 10^3/uL (1.0-4.0); LYMPHOCYTES % (AUTO) 4 % (12-44); MEAN CORPUSCULAR HEMOGLOBIN 32 pg (25-34); MEAN CORPUSCULAR HGB CONC 34 g/dL (32-36); MEAN CORPUSCULAR VOLUME 92 fL (80-99); MEAN PLATELET VOLUME 9.3 fL (9.0-12.2); MONOCYTES # (AUTO) 0.8 10^3/uL (0.0-1.0); MONOCYTES % (AUTO) 11 % (0-12); NEUTROPHILS # (AUTO) 5.7 10^3/uL (1.8-7.8); NEUTROPHILS % (AUTO) 83 % (42-75); PLATELET COUNT 353 10^3/uL (130-400); WHITE BLOOD COUNT 6.8 10^3/uL (4.3-11.0)
[2021-11-25 09:03] LABS: POTASSIUM 3.5 MMOL/L (3.6-5.0)
[2021-11-25 09:04] LABS: CALCIUM 8.4 MG/DL (8.5-10.1)
[2021-11-25 09:08] LABS: CREATININE SERUM 0.93 MG/DL (0.60-1.30)
[2021-11-25] MEDS: KETOROLAC 15 MG/ML VIAL IVP PRN ×2 (11:45→21:18)
[2021-11-25 12:00] VITALS: BP 129/72
[2021-11-25 17:00] VITALS: BP 123/78
--- NOTE | 2021-11-25 18:18 | Progress Note - Hospitalist ---
Subjective HPI/CC On Admission Date Seen by Provider: Nov 25, 2021 Time Seen by Provider: 11:50 Alejandro Carbajal is a 61 year old male with stage IV bladder cancer s/p chemotherapy and radiation who presented with chills. He was found to have a urinary tract infection about a week ago. He has been on antibiotics continuously for recurrent bladder infections. He has not had any abdominal or back pain. He reports urinary urgency and frequency. He has had decreased output. Subjective/Events-last exam He is not feeling much better. He is not having fevers or chills. He is not having back or abdominal pain. He has been a bit nauseous with his pain medicine. Focused Exam Lactate Level 11/23/21 11:52: Lactic Acid Level 0.91 Objective Exam Vital Signs Vital Signs Date Time Temp Pulse Resp B/P (MAP) Pulse Ox O2 Delivery O2 Flow Rate FiO2 11/25/21 17:00 37.1 65 18 123/78 (93) 96 Room Air Capillary Refill : Less Than 3 Seconds General Appearance: No Apparent Distress, WD/WN Respiratory: Lungs Clear, Normal Breath Sounds, No Respiratory Distress Cardiovascular: Regular Rate, Rhythm, No Murmur Gastrointestinal: Normal Bowel Sounds, Soft Extremity: Normal Inspection, No Pedal Edema Neurologic/Psychiatric: Alert, Oriented x3 Skin: Normal Color, Warm/Dry Results/Procedures Lab Laboratory Tests 11/25/21 08:50 Patient resulted labs reviewed. Imaging: Reviewed Imaging Report Assessment/Plan Assessment and Plan Assess & Plan/Chief Complaint Sepsis due to pyelonephritis Pseudomonas aeruginosa UTI Staph aureus UTI Stage IV bladder cancer CT Abdomen concerning for pyelonephritis UA consistent with UTI Urine culture with Pseudomonas and Staph aureus Pseutomonas sensitive to Meropenem Staph aureus sensitivities pending Continue Meropenem and Vancomycin Continue IV fluids Oncology consulted Urology consulted DVT prophylaxis: Lovenox Diagnosis/Problems Diagnosis/Problems (1) Sepsis Status: Acute Qualifiers: Sepsis type: Pseudomonas Sepsis acute organ dysfunction status: without acute organ dysfunction Qualified Codes: A41.52 - Sepsis due to Pseudomonas (2) Pyelonephritis of left kidney Status: Acute (3) Stage IV bladder cancer Status: Acute (4) Pseudomonas urinary tract infection Status: Acute (5) Staph aureus infection Status: Acute PERCY HERNANDEZ MD Nov 25, 2021 18:18
[2021-11-25 20:53] VITALS: BP 123/80
[2021-11-25] MEDS: ENOXAPARIN 40 MG/0.4 ML (LOVENOX) SYR SC SCH (21:14)
[2021-11-26] VITALS (7 sets, daily range): BP systolic 125–145; BP diastolic 64–75
[2021-11-26] MEDS: LACTATED RINGERS 1,000 ML IV SCH ×5 (00:18→17:31)
[2021-11-26] MEDS: ONDANSETRON 4 MG/2 ML (SDV) Z0FRAN IVP PRN (00:20)
[2021-11-26] MEDS: HYDROmorphone 2 MG/ML VIAL (DILAUDID) IVP PRN (00:22)
[2021-11-26] MEDS ORDERED: TROUGH ORDER-PHARMACY XX NR (03:00)
[2021-11-26] MEDS: VANCOMYCIN 1 GM/NS 250 ML IVPB IV SCH ×2 (04:36)
[2021-11-26] MEDS: KETOROLAC 15 MG/ML VIAL IVP PRN ×2 (04:43→14:29)
[2021-11-26] MEDS: MEROPENEM 500 MG/NS 100 ML IVPB IV SCH ×6 (05:49→21:29)
[2021-11-26] MEDS: NICOTINE 7 MG (NICODERM) PATCH TD SCH (08:21)
[2021-11-26] MEDS: NICOTINE PATCH REMOVAL TP SCH (08:21)
[2021-11-26 08:38] LABS: CALCIUM 8.2 MG/DL (8.5-10.1); CREATININE SERUM 0.82 MG/DL (0.60-1.30); POTASSIUM 3.6 MMOL/L (3.6-5.0)
[2021-11-26] MEDS ORDERED: VANCOMYCIN 1250 MG/NS 250 ML IVPB IV SCH ×2 (15:00)
--- NOTE | 2021-11-26 18:23 | Progress Note - Hospitalist ---
Subjective HPI/CC On Admission Date Seen by Provider: Nov 26, 2021 Time Seen by Provider: 11:20 Alejandro Carbajal is a 61 year old male with stage IV bladder cancer s/p chemotherapy and radiation who presented with chills. He was found to have a urinary tract infection about a week ago. He has been on antibiotics continuously for recurrent bladder infections. He has not had any abdominal or back pain. He reports urinary urgency and frequency. He has had decreased output. Subjective/Events-last exam He is feeling better. He is wondering when he can go home. His pain is improved. Objective Exam Vital Signs Vital Signs Date Time Temp Pulse Resp B/P (MAP) Pulse Ox O2 Delivery O2 Flow Rate FiO2 11/26/21 16:00 37.1 54 18 131/66 (87) 96 Room Air Capillary Refill : Less Than 3 Seconds General Appearance: No Apparent Distress, WD/WN Respiratory: Lungs Clear, No Respiratory Distress Cardiovascular: Regular Rate, Rhythm, No Murmur Gastrointestinal: Normal Bowel Sounds, Soft Extremity: Normal Inspection, Pedal Edema Neurologic/Psychiatric: Alert, Oriented x3, No Motor/Sensory Deficits Skin: Normal Color, Warm/Dry Results/Procedures Lab Laboratory Tests 11/26/21 03:00 Patient resulted labs reviewed. Imaging: Reviewed Imaging Report Assessment/Plan Assessment and Plan Assess & Plan/Chief Complaint Sepsis due to pyelonephritis Pseudomonas aeruginosa UTI Staph aureus UTI Stage IV bladder cancer Urine culture with Pseudomonas and Staph aureus Continue Meropenem Transition to Ancef Stop IV fluids DVT prophylaxis: Lovenox Diagnosis/Problems Diagnosis/Problems (1) Pyelonephritis of left kidney Status: Acute (2) Stage IV bladder cancer Status: Acute (3) Pseudomonas urinary tract infection Status: Acute (4) Staph aureus infection Status: Acute (5) Sepsis Status: Resolved Qualifiers: Sepsis type: Pseudomonas Sepsis acute organ dysfunction status: without acute organ dysfunction Qualified Codes: A41.52 - Sepsis due to Pseudomonas Resolution Date/Time: 11/26/21 @ 18:23 PERCY HERNANDEZ MD Nov 26, 2021 18:23
[2021-11-26] MEDS: ENOXAPARIN 40 MG/0.4 ML (LOVENOX) SYR SC SCH (21:29)
[2021-11-26] MEDS ORDERED: MEROPENEM 500 MG/NS 100 ML IVPB IV SCH ×2 (21:45)
[2021-11-26] MEDS ORDERED: ceFAZolin INJECTION 500 MG in NS (IVPB) 50 ML IV SCH (22:00)
[2021-11-26] MEDS: ceFAZolin INJECTION 1,000 MG VIAL IV SCH (22:25)
[2021-11-27] MEDS: KETOROLAC 15 MG/ML VIAL IVP PRN ×2 (01:27→20:55)
[2021-11-27] MEDS: MEROPENEM 500 MG/NS 100 ML IVPB IV SCH ×8 (04:40→20:52)
[2021-11-27] MEDS: ceFAZolin INJECTION 1,000 MG VIAL IV SCH ×3 (05:21→21:37)
[2021-11-27 08:08] VITALS: BP 123/59
[2021-11-27] MEDS: NICOTINE PATCH REMOVAL TP SCH (08:09)
[2021-11-27] MEDS: NICOTINE 7 MG (NICODERM) PATCH TD SCH (08:10)
[2021-11-27 11:49] VITALS: BP 125/76
--- NOTE | 2021-11-27 15:12 | Progress Note - Hospitalist ---
Subjective HPI/CC On Admission Date Seen by Provider: Nov 27, 2021 Time Seen by Provider: 10:30 Alejandro Carbajal is a 61 year old male with stage IV bladder cancer s/p chemotherapy and radiation who presented with chills. He was found to have a urinary tract infection about a week ago. He has been on antibiotics contin uously for recurrent bladder infections. He has not had any abdominal or back pain. He reports urinary urgency and frequency. He has had decreased output. Subjective/Events-last exam He is about the same. He felt a little nauseous earlier. His pain is improved. Objective Exam Vital Signs Vital Signs Date Time Temp Pulse Resp B/P (MAP) Pulse Ox O2 Delivery O2 Flow Rate FiO2 11/27/21 11:49 36.4 52 20 125/76 (92) 99 Room Air Capillary Refill : Less Than 3 Seconds General Appearance: No Apparent Distress, WD/WN Respiratory: Lungs Clear, No Respiratory Distress Cardiovascular: Regular Rate, Rhythm, No Murmur Gastrointestinal: Normal Bowel Sounds, Soft Extremity: Normal Inspection, Non Tender Neurologic/Psychiatric: Alert, No Motor/Sensory Deficits Skin: Normal Color, Warm/Dry Results/Procedures Lab Patient resulted labs reviewed. Imaging: Reviewed Imaging Report Assessment/Plan Assessment and Plan Assess & Plan/Chief Complaint Pyelonephritis Pseudomonas aeruginosa UTI Staph aureus UTI Stage IV bladder cancer Urine culture with Pseudomonas and Staph aureus Continue Meropenem and Ancef DVT prophylaxis: Lovenox Sepsis, resolved Diagnosis/Problems Diagnosis/Problems (1) Pyelonephritis of left kidney Status: Acute (2) Stage IV bladder cancer Status: Acute (3) Pseudomonas urinary tract infection Status: Acute (4) Staph aureus infection Status: Acute (5) Sepsis Status: Resolved Qualifiers: Sepsis type: Pseudomonas Sepsis acute organ dysfunction status: without acute organ dysfunction Qualified Codes: A41.52 - Sepsis due to Pseudomonas Resolution Date/Time: 11/26/21 @ 18:23 PERCY HERNANDEZ MD Nov 27, 2021 15:12
[2021-11-27 16:00] VITALS: BP 127/67
[2021-11-27 20:00] VITALS: BP 121/69
[2021-11-27] MEDS: ENOXAPARIN 40 MG/0.4 ML (LOVENOX) SYR SC SCH (20:52)
[2021-11-28 00:29] VITALS: BP 131/80
[2021-11-28] MEDS: MEROPENEM 500 MG/NS 100 ML IVPB IV SCH ×8 (04:35→21:10)
[2021-11-28] MEDS: ceFAZolin INJECTION 1,000 MG VIAL IV SCH (05:07)
[2021-11-28] MEDS: KETOROLAC 15 MG/ML VIAL IVP PRN ×3 (05:40→22:04)
[2021-11-28 08:00] VITALS: BP 119/63
[2021-11-28] MEDS: NICOTINE 7 MG (NICODERM) PATCH TD SCH (08:26)
[2021-11-28] MEDS: NICOTINE PATCH REMOVAL TP SCH (08:26)
[2021-11-28 08:37] LABS: BASOPHILS % (AUTO) 1 % (0-10); EOSINOPHILS # (AUTO) 0.2 10^3/uL (0.0-0.3); EOSINOPHILS % (AUTO) 3 % (0-10); HEMATOCRIT 29 % (40-54); HEMOGLOBIN 9.9 g/dL (13.3-17.7); LYMPHOCYTES # (AUTO) 0.5 10^3/uL (1.0-4.0); LYMPHOCYTES % (AUTO) 8 % (12-44); MEAN CORPUSCULAR HEMOGLOBIN 32 pg (25-34); MEAN CORPUSCULAR HGB CONC 35 g/dL (32-36); MEAN CORPUSCULAR VOLUME 91 fL (80-99); MEAN PLATELET VOLUME 9.2 fL (9.0-12.2); MONOCYTES # (AUTO) 0.7 10^3/uL (0.0-1.0); MONOCYTES % (AUTO) 12 % (0-12); NEUTROPHILS # (AUTO) 4.6 10^3/uL (1.8-7.8); NEUTROPHILS % (AUTO) 76 % (42-75); PLATELET COUNT 486 10^3/uL (130-400); WHITE BLOOD COUNT 6.1 10^3/uL (4.3-11.0)
[2021-11-28 08:51] VITALS: BP 150/84
[2021-11-28 08:53] LABS: CALCIUM 8.4 MG/DL (8.5-10.1); CREATININE SERUM 0.86 MG/DL (0.60-1.30); POTASSIUM 3.3 MMOL/L (3.6-5.0)
[2021-11-28] MEDS ORDERED: IOHEXOL 240 MGI/ML 50 ML (OMNIPAQUE) VIAL IV ONE (12:30)
--- NOTE | 2021-11-28 15:39 | Diagnostic Imaging Report ---
INDICATION: Left-sided nephrostomy tube. Patient has known bladder cancer. PROCEDURE: The patient presents to the department for nephrostogram to evaluate for ureteral patency. The patient was brought to the fluoroscopy suite, placed on table in the prone position. Omnipaque 240 contrast was injected into the patient's indwelling percutaneous nephrostomy tube on the left side. There is free flow of contrast down the left ureter. There were ureteral jets seen within the urinary bladder. There does appear to be some narrowing at the most distal aspect of the left ureter near the UVJ but no complete obstruction is identified. No filling defects or masses are seen. IMPRESSION: Indwelling left-sided percutaneous nephrostomy tube is in place. The left ureter is patent with flow of contrast into the urinary bladder. There is some narrowing distally but no complete obstruction is identified. Dictated by: Dictated on workstation # [id number]
--- NOTE | 2021-11-28 16:08 | Progress Note - Hospitalist ---
Subjective HPI/CC On Admission Date Seen by Provider: Nov 28, 2021 Time Seen by Provider: 09:40 Alejandro Carbajal is a 61 year old male with stage IV bladder cancer s/p chemotherapy and radiation who presented with chills. He was found to have a urinary tract infection about a week ago. He has been on antibiotics continuously for recurrent bladder infections. He has not had any abdominal or back pain. He reports urinary urgency and frequency. He has had decreased output. Subjective/Events-last exam He is wondering when he can go home. He is not sleeping well here. He wants more info about his cancer treatment going forward. Objective Exam Vital Signs Vital Signs Date Time Temp Pulse Resp B/P (MAP) Pulse Ox O2 Delivery O2 Flow Rate FiO2 11/28/21 09:24 Room Air 11/28/21 08:51 36.4 52 18 150/84 (106) 100 Capillary Refill : Less Than 3 Seconds General Appearance: No Apparent Distress, WD/WN Respiratory: Lungs Clear, No Respiratory Distress Cardiovascular: Regular Rate, Rhythm, No Murmur Gastrointestinal: Normal Bowel Sounds, Soft Extremity: Normal Inspection, No Pedal Edema Neurologic/Psychiatric: Alert, Normal Mood/Affect Skin: Normal Color, Warm/Dry Results/Procedures Lab Laboratory Tests 11/28/21 08:22 Patient resulted labs reviewed. Imaging: Reviewed Imaging Report Assessment/Plan Assessment and Plan Assess & Plan/Chief Complaint Pyelonephritis Pseudomonas aeruginosa UTI Staph aureus UTI Stage IV bladder cancer Urine culture with Pseudomonas and Staph aureus Continue Meropenem Npehrostomy tube Ureteral obstruction Performing nephrostogram Urology following Oncology following DVT prophylaxis: Lovenox Sepsis, resolved Diagnosis/Problems Diagnosis/Problems (1) Pyelonephritis of left kidney Status: Acute (2) Stage IV bladder cancer Status: Acute (3) Pseudomonas urinary tract infection Status: Acute (4) Staph aureus infection Status: Acute (5) Sepsis Status: Resolved Qualifiers: Sepsis type: Pseudomonas Sepsis acute organ dysfunction status: without acute organ dysfunction Qualified Codes: A41.52 - Sepsis due to Pseudomonas Resolution Date/Time: 11/26/21 @ 18:23 (6) Infection associated with nephrostomy catheter Status: Acute PERCY HERNANDEZ MD Nov 28, 2021 16:08
--- NOTE | 2021-11-28 17:06 | Progress Note ---
Progress Note Assessment/Plan Date Seen by Provider: Nov 28, 2021 Time Seen by Provider: 17:05 Events since last exam Pt is doing better. Possible home tomorrow after 7 days of meropenum IV. He finished last dose of radiation on . The radiation will continue to work on the tumor for a month or so. I plan to have re-staging f/u CT scan in 4 weeks as ou-pt and then decide next treatment options. My office will call him next week to set up scan and f/u appointment. If it is possible, remove the nephrostomy catheter since it has related to multiple recurrence of the pseudomona UTI/pyelonephritis. Awaiting for Dr. Caceres decision. Assessment/Plan A/P: 1. Current pseudomonas A pyelonephritis of the left in the setting of percutaneous nephrostomy catheter. 2. 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 Finished radiation 11/21/2021. 3. Leukocytosis due to infection Plan: 1. IV meropenum 1g q8hrs. 2. Dr. Caceres to possibly remove the catheter. 3. See me at the cancer center after he finishes his antibiotic course. 4. Dr Parikh to determine the hospital course and discharge plan. Vitals Last set of Vitals Signs Vital Signs Date Time Temp Pulse Resp B/P (MAP) Pulse Ox O2 Delivery O2 Flow Rate FiO2 11/28/21 09:24 Room Air 11/28/21 08:51 36.4 52 18 150/84 (106) 100 I&O I&O Intake and Output 11/28/21 00:00 Intake Total 1950 ml Balance 1950 ml Intake Oral 1740 ml IV Total 210 ml # Voids 20 # Bowel Movements 2 Labs Laboratory Tests 11/28/21 08:22: White Blood Count 6.1, Red Blood Count 3.13L, Hemoglobin 9.9L, Hematocrit 29L, Mean Corpuscular Volume 91, Mean Corpuscular Hemoglobin 32, Mean Corpuscular Hemoglobin Concent 35, Red Cell Distribution Width 14.9H, Platelet Count 486H, Mean Platelet Volume 9.2, Immature Granulocyte % (Auto) 1, Neutrophils (%) (Auto) 76H, Lymphocytes (%) (Auto) 8L, Monocytes (%) (Auto) 12, Eosinophils (%) (Auto) 3, Basophils (%) (Auto) 1, Neutrophils # (Auto) 4.6, Lymphocytes # (Auto) 0.5L, Monocytes # (Auto) 0.7, Eosinophils # (Auto) 0.2, Basophils # (Auto) 0.0, Immature Granulocyte # (Auto) 0.1, Sodium Level 140, Potassium Level 3.3L, Chloride Level 104, Carbon Dioxide Level 25, Anion Gap 11, Blood Urea Nitrogen 8, Creatinine 0.86, Estimat Glomerular Filtration Rate 99, BUN/Creatinine Ratio 9, Glucose Level 84, Calcium Level 8.4L Microbiology 11/23/21 Blood Culture - Final, Complete No growth 11/23/21 Urine Culture - Final, Complete Pseudomonas aeruginosa Staphylococcus aureus ELSI LOPEZ MD Nov 28, 2021 17:06
[2021-11-28] MEDS: ENOXAPARIN 40 MG/0.4 ML (LOVENOX) SYR SC SCH (21:10)
[2021-11-28 23:50] VITALS: BP 152/75
[2021-11-29] MEDS: MEROPENEM 500 MG/NS 100 ML IVPB IV SCH ×4 (03:54→09:32)
[2021-11-29] MEDS: KETOROLAC 15 MG/ML VIAL IVP PRN (05:36)
[2021-11-29 08:00] VITALS: BP 127/73
[2021-11-29] MEDS: NICOTINE 7 MG (NICODERM) PATCH TD SCH (09:32)
[2021-11-29] MEDS: NICOTINE PATCH REMOVAL TP SCH (09:33)
[2021-11-29 12:29] VITALS: BP 127/73
--- NOTE | 2021-11-29 16:22 | Discharge Summary ---
Discharge Summary Hospital Course Was the Problem List Reviewed?: Yes Problems/Dx: (1) Pyelonephritis of left kidney Status: Acute (2) Stage IV bladder cancer Status: Acute (3) Pseudomonas urinary tract infection Status: Acute (4) Staph aureus infection Status: Acute (5) Sepsis Status: Resolved Qualifiers: Qualified Codes: A41.52 - Sepsis due to Pseudomonas (6) Infection associated with nephrostomy catheter Status: Acute Hospital Course Date of Admission: Nov 23, 2021 at 13:04 Admission Diagnosis : Sepsis due to pyelonephritis Family Physician/Provider: No,Local Physician Date of Discharge: 11/29/21 Discharge Diagnosis: Sepsis due to pyelonephritis Hospital Course: Alejandro Carbajal is a 61 year old male with stage IV bladder cancer s/p chemotherapy and radiation with nephrostomy tube in place who was admitted with sepsis due to pyelonephritis. His urine culture grew Pseudomonas aeruginosa and Staph aureus. He was treated with a 7 day course of IV Meropenem. He underwent a nephrostogram and no complete obstruction was identified. His nephrostomy tube was removed as there was no ongoing obstruction and he has had recurrent infections. He will follow up with Dr. Lopez in the cancer center. They will call to set up an appointment and re-staging scans. He had some passive suicidal ideation and social work was consulted to further evaluate. He did not express any active suicidal ideation or intent. He was discharged home in stable condition. Labs and Pending Lab Test: Microbiology 11/23/21 Blood Culture - Final, Complete No growth 11/23/21 Urine Culture - Final, Complete Pseudomonas aeruginosa Staphylococcus aureus Home Meds Active Reported Ondansetron Odt (Ondansetron) 8 Mg Tab.rapdis 8 Mg PO Q8H PRN Hydrocodone-Acetamin 7.5-325 (Hydrocodone/Acetaminophen) 1 Each Tablet 1 Each PO Q4H PRN Assessment/Pt Instructions Take medications as prescribed. Follow up with your PCP. Return with worsening symptoms. Discharge Planning: >30 minutes discharge planning Discharge Instructions Discharge Diet: No Restrictions Activity as Tolerated: Yes Consultations Urology, Oncology Discharge Physical Examination Vital Signs Vital Signs Date Time Temp Pulse Resp B/P (MAP) Pulse Ox O2 Delivery O2 Flow Rate FiO2 11/29/21 12:29 36.6 51 20 127/73 100 Room Air General Appearance: No Apparent Distress, WD/WN Respiratory: Lungs Clear, No Respiratory Distress Cardiovascular: Regular Rate, Rhythm, No Murmur Gastrointestinal: Normal Bowel Sounds, Soft Extremity: Normal Inspection, No Pedal Edema Skin: Normal Color, Warm/Dry Neurologic/Psychiatric: Alert, Oriented x3, No Motor/Sensory Deficits, Normal Mood/Affect Allergies: Coded Allergies: Penicillins (Unverified Allergy, Unknown, 04/14/16) Copy Copies To 1: ELSI LOPEZ MD Discharge Summary Date of Admission Nov 23, 2021 at 13:04 Date of Discharge Nov 29, 2021 at 12:31 Discharge Date: Nov 29, 2021 Discharge Time: 12:31 Admission Diagnosis Sepsis due to pyelonephritis Consults/Procedures Consulations Urology, Oncology Discharge Diagnosis Sepsis due to pyelonephritis Pseudomonas aeruginosa UTI Staph aureus UTI Stage IV bladder cancer Npehrostomy tube (1) Pyelonephritis of left kidney Status: Acute (2) Stage IV bladder cancer Status: Acute (3) Pseudomonas urinary tract infection Status: Acute (4) Staph aureus infection Status: Acute (5) Sepsis Status: Resolved Qualifiers: Qualified Codes: A41.52 - Sepsis due to Pseudomonas (6) Infection associated with nephrostomy catheter Status: Acute PERCY HERNANDEZ MD Nov 29, 2021 16:12
--- NOTE | 2021-11-30 23:10 | Physician Query Clarification ---
PQ-Uncertain Diagnosis Admission/Discharge Admission Date: Nov 23, 2021 at 13:04 Discharge Date: Nov 29, 2021 at 12:31 PERCY Huang MD The medical record reflects the following clinical scenario: History/Risk Factors: 61 y/o male patient with stage IV bladder cancer s/p chemotherapy, radiation therapy and had nephrostomy tube, admitted with sepsis due to pyelonephritis. Infection due to nephrostomy catheter was documented in medical record. Clinical Findings: Leakage from nephrostomy tube past 1 week, UA-pseudomonas, staphylococcus. Treatment: IV antibiotics, IV fluids. Question: Is Infection due to nephrostomy catheter a clinically valid diagnosis? Infection due to nephrostomy catheter was documented in the discharge summary, 11/29 with no further documentation in the medical record. Please document a response in Progress Note or Discharge Summary. 1. Yes, clinically valid, condition resolved, present on admission. 2. No, condition ruled out. 3. Other, with explanation of clinical findings. 4. Undetermined, no explanation for clinical findings. PHYSICIAN RESPONSE Diagnosis clinically valid: Yes, Conditon resolved Please remember a lack of response to the above will prompt a phone page by [facility]oding staff. In responding to this query, please exercise your independent professional judgment. The purpose of this communication is to more accurately reflect the complexity of your patients condition. The fact that a question is asked does not imply that any particular answer is desired or expected. Thank you for your timely response to this clarification. Requestors name: [ ] Phone # [ ] THIS PHYSICIAN QUERY FORM IS A PERMANENT PART OF THE MEDICAL RECORD MEDARDO GARCIA Nov 30, 2021 23:10 PERCY HERNANDEZ MD Dec 02, 2021 21:26
== END 2021-11-29 12:31 | disposition home or self-care (01) | DRG 698 ==
LOC: EDUNIT# 11:03 → ER 11:05 → 4TH 13:04
PROVIDERS: ADMIT Internal Medicine; ATTEND Internal Medicine
DX: T83.512A Infection and inflammatory reaction due to nephrostomy catheter, initial encounter (principal); A41.52 Sepsis due to Pseudomonas; N12 Tubulo-interstitial nephritis, not specified as acute or chronic; C79.9 Secondary malignant neoplasm of unspecified site; Z93.6 Other artificial openings of urinary tract status; Z85.51 Personal history of malignant neoplasm of bladder; F12.90 Cannabis use, unspecified, uncomplicated; F17.210 Nicotine dependence, cigarettes, uncomplicated; Z88.0 Allergy status to penicillin; Z92.21 Personal history of antineoplastic chemotherapy; Z92.3 Personal history of irradiation; D72.829 Elevated white blood cell count, unspecified; A49.01 Methicillin susceptible Staphylococcus aureus infection, unspecified site; N13.5 Crossing vessel and stricture of ureter without hydronephrosis
CPT/HCPCS: 36415; 74177; 74425; 80048; 80053; 80202; 81000; 83605; 85007; 85025; 85027; 85610; 87040; 87077; 87088; 87186; 96361; 96365; 96375

== ENCOUNTER → 2021-12-26 | Outpatient (RCR) | payer OTHER ==
[2021-10-31 22:02] VITALS: BP 115/63
[~2021-12-26] MED LIST changes: +HYDR-3817 PO; +ONDA8TAB13 PO
[2021-12-26 11:44] LABS: BASOPHILS # (AUTO) 0.1 10^3/uL (0.0-0.1); BASOPHILS % (AUTO) 1 % (0-10); EOSINOPHILS # (AUTO) 0.1 10^3/uL (0.0-0.3); EOSINOPHILS % (AUTO) 1 % (0-10); HEMATOCRIT 31 % (40-54); HEMOGLOBIN 10.3 g/dL (13.3-17.7); LYMPHOCYTES # (AUTO) 0.6 10^3/uL (1.0-4.0); LYMPHOCYTES % (AUTO) 5 % (12-44); MEAN CORPUSCULAR HEMOGLOBIN 31 pg (25-34); MEAN CORPUSCULAR HGB CONC 33 g/dL (32-36); MEAN CORPUSCULAR VOLUME 94 fL (80-99); MEAN PLATELET VOLUME 8.9 fL (9.0-12.2); MONOCYTES % (AUTO) 8 % (0-12); NEUTROPHILS # (AUTO) 10.4 10^3/uL (1.8-7.8); NEUTROPHILS % (AUTO) 84 % (42-75); PLATELET COUNT 866 10^3/uL (130-400); WHITE BLOOD COUNT 12.4 10^3/uL (4.3-11.0)
[2021-12-26 12:01] LABS: ALBUMIN 3.4 GM/DL (3.2-4.5); BILIRUBIN,TOTAL 0.2 MG/DL (0.1-1.0); CALCIUM 9.2 MG/DL (8.5-10.1); POTASSIUM 4.1 MMOL/L (3.6-5.0); TOTAL PROTEIN 7.1 GM/DL (6.4-8.2)
== END | disposition home or self-care (01) ==
LOC: ONC 10:36
PROVIDERS: ATTEND Internal Medicine Hematology & Oncology
DX: Z45.2 Encounter for adjustment and management of vascular access device (principal); C67.9 Malignant neoplasm of bladder, unspecified; N39.0 Urinary tract infection, site not specified; R91.8 Other nonspecific abnormal finding of lung field; Z93.6 Other artificial openings of urinary tract status
CPT/HCPCS: 80053; 85025; G0463; 36591; 99213

== ENCOUNTER → 2022-01-16 | Outpatient (CLI) | payer MEDICAID, OTHER ==
[~2022-01-16] MED LIST changes: +CATHETER FLUSH 10 ML SYR IV PRN; +IOHEXOL 350 MG/ML 100 ML (OMNIPAQUE 350) VIAL IV ONE; +NS 100 ML (IVPB) BAG IV ONE
--- NOTE | 2022-01-16 13:07 | Diagnostic Imaging Report ---
EXAMINATION: CT chest with intravenous contrast, CT abdomen and pelvis without and with intravenous contrast. TECHNIQUE: Pre and post intravenous contrast axial imaging of the abdomen and pelvis and post contrast axial imaging of the chest were performed. All CT scans use one or more of the following dose optimizing techniques: automated exposure control, MA and/or KvP adjustment based on patient size and exam type or iterative reconstruction. HISTORY: MALIGNANT TUMOR OF URINARY BLADDER COMPARISON: 11/23/2021, 08/23/2021 FINDINGS: Thyroid: The thyroid is normal. Mediastinum: Heart size is normal without significant pericardial effusion. The aorta is normal in caliber. No suspicious lymphadenopathy. A left-sided portacatheter is present. Lungs and airways: The lungs are clear without consolidation, pleural effusion, or pneumothorax. Background emphysematous changes of lungs. Scattered calcified granulomas are present. Stable subcentimeter bilateral pulmonary nodules, measuring up to 0.4 cm in the right lung base. There is no new suspicious pulmonary lesion. The airways are normal. Solid organs: The liver is normal without suspicious lesion. Stable hypoattenuating lesions within the liver, the largest of which are compatible with hepatic cysts. The gallbladder is normal. There is no biliary ductal dilation. Pancreas is normal. Calcified granulomas within the spleen. Adrenal glands are normal. There is moderate left hydronephrosis and hydroureter at the level of the urinary bladder. The right kidney is unremarkable without hydronephrosis. Bowel: The stomach and small bowel are normal without obstruction. The colon and appendix are normal. Peritoneum: There is no intraperitoneal free fluid or free air. Stable prominent retroperitoneal lymph nodes compared to prior exams. No new suspicious lymphadenopathy. Vasculature: Calcification of the aorta without aneurysm. Musculoskeletal: Degenerative changes of the spine without suspicious osseous lesion or compression fracture. Pelvis: The prostate gland is enlarged. Asymmetric wall thickening of the left wall of the urinary bladder. IMPRESSION: 1. Asymmetric wall thickening of the left wall of the urinary bladder compatible with history of bladder neoplasm. This results in left hydronephrosis and hydroureter. 2. No findings of metastatic disease within the abdomen or pelvis. 3. Stable bilateral pulmonary nodules measuring up to 0.8 cm. 4. Stable prominent retroperitoneal lymph nodes. Dictated by: Dictated on workstation # [id number]
== END ==
LOC: RAD 11:15
PROVIDERS: ATTEND Internal Medicine Hematology & Oncology
DX: N13.30 Unspecified hydronephrosis (principal); C67.9 Malignant neoplasm of bladder, unspecified; R92.8 Other abnormal and inconclusive findings on diagnostic imaging of breast
CPT/HCPCS: 71260; 74178

== ENCOUNTER 2022-01-25 13:31 | Outpatient (RCR) | payer MEDICAID, OTHER ==
[2021-10-31 22:02] VITALS: BP 115/63
[~2022-01-25 13:31] MED LIST changes: -CATHETER FLUSH 10 ML SYR IV PRN; -IOHEXOL 350 MG/ML 100 ML (OMNIPAQUE 350) VIAL IV ONE; -NS 100 ML (IVPB) BAG IV ONE
[2022-01-25 14:11] LABS: BASOPHILS # (AUTO) 0.1 10^3/uL (0.0-0.1); BASOPHILS % (AUTO) 1 % (0-10); EOSINOPHILS # (AUTO) 0.3 10^3/uL (0.0-0.3); EOSINOPHILS % (AUTO) 5 % (0-10); HEMATOCRIT 36 % (40-54); HEMOGLOBIN 11.6 g/dL (13.3-17.7); LYMPHOCYTES # (AUTO) 0.5 10^3/uL (1.0-4.0); LYMPHOCYTES % (AUTO) 8 % (12-44); MEAN CORPUSCULAR HEMOGLOBIN 32 pg (25-34); MEAN CORPUSCULAR HGB CONC 33 g/dL (32-36); MEAN CORPUSCULAR VOLUME 99 fL (80-99); MEAN PLATELET VOLUME 8.8 fL (9.0-12.2); MONOCYTES # (AUTO) 0.7 10^3/uL (0.0-1.0); MONOCYTES % (AUTO) 11 % (0-12); NEUTROPHILS # (AUTO) 4.6 10^3/uL (1.8-7.8); NEUTROPHILS % (AUTO) 75 % (42-75); PLATELET COUNT 364 10^3/uL (130-400); WHITE BLOOD COUNT 6.1 10^3/uL (4.3-11.0)
[2022-01-25 14:34] LABS: ALBUMIN 3.9 GM/DL (3.2-4.5); BILIRUBIN,TOTAL 0.5 MG/DL (0.1-1.0); CALCIUM 9.5 MG/DL (8.5-10.1); CREATININE SERUM 1.12 MG/DL (0.60-1.30); POTASSIUM 4.5 MMOL/L (3.6-5.0); TOTAL PROTEIN 7.1 GM/DL (6.4-8.2)
== END 2022-01-26 ==
LOC: ONC 13:31
PROVIDERS: ATTEND Internal Medicine Hematology & Oncology
DX: Z51.11 Encounter for antineoplastic chemotherapy (principal); C67.9 Malignant neoplasm of bladder, unspecified; N39.0 Urinary tract infection, site not specified; D75.839 Thrombocytosis, unspecified; D64.9 Anemia, unspecified; Z93.6 Other artificial openings of urinary tract status; Z92.3 Personal history of irradiation
CPT/HCPCS: 80053; 85025; G0463; 36415; 99213

== ENCOUNTER 2022-03-29 10:52 | Outpatient (RCR) | payer MEDICAID ==
[2021-10-31 22:02] VITALS: BP 115/63
[2022-03-29 11:25] LABS: BASOPHILS % (AUTO) 1 % (0-10); EOSINOPHILS # (AUTO) 0.1 10^3/uL (0.0-0.3); EOSINOPHILS % (AUTO) 3 % (0-10); HEMATOCRIT 41 % (40-54); LYMPHOCYTES # (AUTO) 0.8 10^3/uL (1.0-4.0); LYMPHOCYTES % (AUTO) 18 % (12-44); MEAN CORPUSCULAR HEMOGLOBIN 33 pg (25-34); MEAN CORPUSCULAR HGB CONC 34 g/dL (32-36); MEAN CORPUSCULAR VOLUME 96 fL (80-99); MEAN PLATELET VOLUME 9.6 fL (9.0-12.2); MONOCYTES # (AUTO) 0.7 10^3/uL (0.0-1.0); MONOCYTES % (AUTO) 15 % (0-12); NEUTROPHILS # (AUTO) 2.9 10^3/uL (1.8-7.8); NEUTROPHILS % (AUTO) 64 % (42-75); PLATELET COUNT 274 10^3/uL (130-400); WHITE BLOOD COUNT 4.5 10^3/uL (4.3-11.0)
[2022-03-29 11:57] LABS: ALBUMIN 4.3 GM/DL (3.2-4.5); BILIRUBIN,TOTAL 0.3 MG/DL (0.1-1.0); CALCIUM 9.8 MG/DL (8.5-10.1); CREATININE SERUM 1.23 MG/DL (0.60-1.30); POTASSIUM 4.4 MMOL/L (3.6-5.0); TOTAL PROTEIN 7.7 GM/DL (6.4-8.2)
== END 2022-04-27 | disposition home or self-care (01) ==
LOC: ONC 10:52
PROVIDERS: ATTEND Internal Medicine Hematology & Oncology
DX: Z45.2 Encounter for adjustment and management of vascular access device (principal); C67.9 Malignant neoplasm of bladder, unspecified
CPT/HCPCS: 36591; 80053; 82728; 83540; 83550; 85025

== ENCOUNTER 2022-05-05 09:37 | Outpatient (RCR) | payer MEDICAID ==
[2021-10-31 22:02] VITALS: BP 115/63
== END 2022-05-28 | disposition home or self-care (01) ==
LOC: ONC 09:37
PROVIDERS: ATTEND Internal Medicine Hematology & Oncology
DX: C67.9 Malignant neoplasm of bladder, unspecified (principal); N39.0 Urinary tract infection, site not specified; Z92.21 Personal history of antineoplastic chemotherapy
CPT/HCPCS: 99213

== ENCOUNTER 2022-07-24 13:21 | Outpatient (RCR) | payer MEDICAID ==
[2021-10-31 22:02] VITALS: BP 115/63
[2022-07-24 14:43] LABS: BASOPHILS # (AUTO) 0.1 10^3/uL (0.0-0.1); BASOPHILS % (AUTO) 1 % (0-10); EOSINOPHILS # (AUTO) 0.2 10^3/uL (0.0-0.3); EOSINOPHILS % (AUTO) 3 % (0-10); HEMATOCRIT 45 % (40-54); HEMOGLOBIN 15.3 g/dL (13.3-17.7); LYMPHOCYTES # (AUTO) 1.1 10^3/uL (1.0-4.0); LYMPHOCYTES % (AUTO) 18 % (12-44); MEAN CORPUSCULAR HEMOGLOBIN 32 pg (25-34); MEAN CORPUSCULAR HGB CONC 34 g/dL (32-36); MEAN CORPUSCULAR VOLUME 95 fL (80-99); MEAN PLATELET VOLUME 10.4 fL (9.0-12.2); MONOCYTES # (AUTO) 0.6 10^3/uL (0.0-1.0); MONOCYTES % (AUTO) 10 % (0-12); NEUTROPHILS # (AUTO) 4.1 10^3/uL (1.8-7.8); NEUTROPHILS % (AUTO) 68 % (42-75); PLATELET COUNT 291 10^3/uL (130-400); WHITE BLOOD COUNT 6.1 10^3/uL (4.3-11.0)
[2022-07-24 14:52] LABS: CHLORIDE 103 MMOL/L (98-107); POTASSIUM 4.7 MMOL/L (3.6-5.0); SODIUM 142 MMOL/L (135-145)
[2022-07-24 14:54] LABS: CALCIUM 10.4 MG/DL (8.5-10.1)
[2022-07-24 14:55] LABS: GLUCOSE 96 MG/DL (70-105); TOTAL PROTEIN 8.7 GM/DL (6.4-8.2)
[2022-07-24 14:56] LABS: CARBON DIOXIDE 26 MMOL/L (21-32)
[2022-07-24 14:57] LABS: BILIRUBIN,TOTAL 0.4 MG/DL (0.1-1.0)
[2022-07-24 14:58] LABS: ALKALINE PHOSPHATASE 69 U/L (40-136); CREATININE SERUM 1.26 MG/DL (0.60-1.30); GFR ESTIMATED 65
[2022-07-24 15:00] LABS: BUN/CREATININE RATIO 15
[2022-07-24 15:01] LABS: ALANINE AMINOTRANSFERASE 10 U/L (0-55)
== END 2022-07-27 09:48 | disposition home or self-care (01) ==
LOC: ONC 13:21
PROVIDERS: ATTEND Internal Medicine Hematology & Oncology
DX: C67.9 Malignant neoplasm of bladder, unspecified (principal); N39.0 Urinary tract infection, site not specified; Z92.21 Personal history of antineoplastic chemotherapy
CPT/HCPCS: 80053; 85025; G0463; 99213

== ENCOUNTER → 2022-07-25 | Outpatient (CLI) | payer MEDICAID ==
[~2022-07-25] MED LIST changes: +CATHETER FLUSH 10 ML SYR IV PRN; +HOLD METFORMIN - RECEIVED CONTRAST 20 ML VIAL IV SCH; +IOHEXOL 350 MG/ML 100 ML (OMNIPAQUE 350) VIAL IV ONE; +NS 100 ML (IVPB) BAG IV ONE
--- NOTE | 2022-07-25 12:30 | Diagnostic Imaging Report ---
PROCEDURE: CT chest, abdomen, and pelvis with contrast. TECHNIQUE: Multiple contiguous axial images were obtained through the chest, abdomen, and pelvis after the administration of intravenous contrast. Auto Exposure Controls were utilized during the CT exam to meet ALARA standards for radiation dose reduction. INDICATION: Right flank pain, history of bladder cancer. COMPARISON: Exam is compared with study 01/16/2022. FINDINGS: CHEST: Scattered subpleural subcentimeter pulmonary nodules are identical in appearance to prior. A few of these contain coarse central calcifications, and this may be a combination of calcified and noncalcified granulomatous disease. No dominant lung mass, and no findings of edema or pneumonia. There is no axillary, hilar, or mediastinal lymphadenopathy. The aorta is nonaneurysmal. There is no pleural or pericardial effusion. No acute or suspicious chest wall pathology. ABDOMEN AND PELVIS: A few scattered hepatic cysts are stable. Liver, gallbladder, and bile ducts are otherwise normal. The spleen and adrenals are negative. The pancreas is unremarkable. There is mild left renal atrophy, but resolution of previous left hydroureteronephrosis has occurred. The right kidney is unobstructed and normal. There is no ascites. No abdominopelvic bowel obstruction. Some thickening of the [place] of the urinary bladder in the setting of prostatomegaly redemonstrated. Previously, there was more asymmetric lobular thickening at the left base peripheral to the left trigone. This asymmetry is no longer revealed. No discrete measurable bladder mass. No perivesical stranding or distortion. Pelvic sidewalls and ilioinguinal lymph node chains are unremarkable. There is no suspicious bony lesion. IMPRESSION: CHEST: Calcified and noncalcified subcentimeter subpleural nodules, unchanged. Their distribution and stability favor granulomatous disease. ABDOMEN AND PELVIS: 1. The bladder wall is mildly thickened diffusely, but the prior focal thickening at the left trigone has resolved and there is resolution of left hydroureteronephrosis with chronic left renal atrophy. 2. No abdominopelvic adenopathy. There is no suspicious bone lesion. There has been no adverse development. Dictated by: Dictated on workstation # [id number]
== END ==
LOC: RAD 10:15
PROVIDERS: ATTEND Internal Medicine Hematology & Oncology
DX: C67.9 Malignant neoplasm of bladder, unspecified (principal); R91.8 Other nonspecific abnormal finding of lung field
CPT/HCPCS: 71260; 74177

== ENCOUNTER 2022-08-04 09:01 | Outpatient (RCR) | payer MEDICAID ==
[2021-10-31 22:02] VITALS: BP 115/63
[~2022-08-04 09:01] MED LIST changes: -CATHETER FLUSH 10 ML SYR IV PRN; -HOLD METFORMIN - RECEIVED CONTRAST 20 ML VIAL IV SCH; -IOHEXOL 350 MG/ML 100 ML (OMNIPAQUE 350) VIAL IV ONE; -NS 100 ML (IVPB) BAG IV ONE
== END 2022-08-28 | disposition home or self-care (01) ==
LOC: ONC 09:01
PROVIDERS: ATTEND Internal Medicine Hematology & Oncology
DX: C67.9 Malignant neoplasm of bladder, unspecified (principal); N39.0 Urinary tract infection, site not specified; Z92.21 Personal history of antineoplastic chemotherapy; R91.8 Other nonspecific abnormal finding of lung field; Z92.3 Personal history of irradiation; Z93.6 Other artificial openings of urinary tract status; Z45.2 Encounter for adjustment and management of vascular access device
CPT/HCPCS: 96523; G0463

== ENCOUNTER 2022-11-06 09:30 | Outpatient (RCR) | payer MEDICAID ==
[2021-10-31 22:02] VITALS: BP 115/63
[2022-11-06 09:59] LABS: BASOPHILS # (AUTO) 0.1 10^3/uL (0.0-0.1); BASOPHILS % (AUTO) 1 % (0-10); EOSINOPHILS # (AUTO) 0.2 10^3/uL (0.0-0.3); EOSINOPHILS % (AUTO) 3 % (0-10); HEMATOCRIT 41 % (40-54); LYMPHOCYTES % (AUTO) 16 % (12-44); MEAN CORPUSCULAR HEMOGLOBIN 32 pg (25-34); MEAN CORPUSCULAR HGB CONC 34 g/dL (32-36); MEAN CORPUSCULAR VOLUME 94 fL (80-99); MEAN PLATELET VOLUME 9.8 fL (9.0-12.2); MONOCYTES # (AUTO) 0.7 10^3/uL (0.0-1.0); MONOCYTES % (AUTO) 12 % (0-12); NEUTROPHILS # (AUTO) 3.9 10^3/uL (1.8-7.8); NEUTROPHILS % (AUTO) 67 % (42-75); PLATELET COUNT 267 10^3/uL (130-400); WHITE BLOOD COUNT 5.9 10^3/uL (4.3-11.0)
[2022-11-06 10:17] LABS: ALBUMIN 4.4 GM/DL (3.2-4.5); BILIRUBIN,TOTAL 0.4 MG/DL (0.1-1.0); CALCIUM 9.6 MG/DL (8.5-10.1); CREATININE SERUM 1.24 MG/DL (0.60-1.30); POTASSIUM 4.3 MMOL/L (3.6-5.0); TOTAL PROTEIN 7.4 GM/DL (6.4-8.2)
== END 2022-11-28 | disposition home or self-care (01) ==
LOC: ONC 09:30
PROVIDERS: ATTEND Internal Medicine Hematology & Oncology
DX: Z45.2 Encounter for adjustment and management of vascular access device (principal); C67.9 Malignant neoplasm of bladder, unspecified; N39.0 Urinary tract infection, site not specified; R91.8 Other nonspecific abnormal finding of lung field; Z92.3 Personal history of irradiation; Z93.6 Other artificial openings of urinary tract status
CPT/HCPCS: 80053; 85025; G0463; 36591

== ENCOUNTER 2023-01-29 09:51 | Outpatient (RCR) | payer MEDICAID ==
[2021-10-31 22:02] VITALS: BP 115/63
[2023-01-29 10:16] LABS: BASOPHILS # (AUTO) 0.1 10^3/uL (0.0-0.1); BASOPHILS % (AUTO) 1 % (0-10); EOSINOPHILS # (AUTO) 0.2 10^3/uL (0.0-0.3); EOSINOPHILS % (AUTO) 4 % (0-10); HEMATOCRIT 42 % (40-54); HEMOGLOBIN 14.4 g/dL (13.3-17.7); LYMPHOCYTES # (AUTO) 0.9 10^3/uL (1.0-4.0); LYMPHOCYTES % (AUTO) 14 % (12-44); MEAN CORPUSCULAR HEMOGLOBIN 32 pg (25-34); MEAN CORPUSCULAR HGB CONC 34 g/dL (32-36); MEAN CORPUSCULAR VOLUME 94 fL (80-99); MEAN PLATELET VOLUME 10.2 fL (9.0-12.2); MONOCYTES # (AUTO) 0.7 10^3/uL (0.0-1.0); MONOCYTES % (AUTO) 11 % (0-12); NEUTROPHILS # (AUTO) 4.3 10^3/uL (1.8-7.8); NEUTROPHILS % (AUTO) 70 % (42-75); PLATELET COUNT 256 10^3/uL (130-400); WHITE BLOOD COUNT 6.1 10^3/uL (4.3-11.0)
[2023-01-29 10:35] LABS: ALBUMIN 4.4 GM/DL (3.2-4.5); BILIRUBIN,TOTAL 0.3 MG/DL (0.1-1.0); CALCIUM 9.9 MG/DL (8.5-10.1); CREATININE SERUM 1.27 MG/DL (0.60-1.30); POTASSIUM 4.4 MMOL/L (3.6-5.0); TOTAL PROTEIN 7.5 GM/DL (6.4-8.2)
== END 2023-02-25 | disposition home or self-care (01) ==
LOC: ONC 09:51
PROVIDERS: ATTEND Internal Medicine Hematology & Oncology
DX: Z51.11 Encounter for antineoplastic chemotherapy (principal); C67.9 Malignant neoplasm of bladder, unspecified; N39.0 Urinary tract infection, site not specified; R91.8 Other nonspecific abnormal finding of lung field; Z92.3 Personal history of irradiation; Z93.6 Other artificial openings of urinary tract status
CPT/HCPCS: 36591; 80053; 85025

== ENCOUNTER → 2023-04-18 | Outpatient (CLI) | payer MEDICAID ==
[~2023-04-18] MED LIST changes: +HOLD METFORMIN - RECEIVED CONTRAST 20 ML VIAL IV SCH; +IOHEXOL 350 MG/ML 100 ML (OMNIPAQUE 350) VIAL IV ONE; +NS 100 ML (IVPB) BAG IV ONE
--- NOTE | 2023-04-18 11:03 | Diagnostic Imaging Report ---
EXAMINATION: CT chest, abdomen and pelvis with intravenous contrast. TECHNIQUE: Multiple contiguous axial images were obtained through the chest, abdomen and pelvis after the uneventful administration of intravenous contrast. All CT scans use one or more of the following dose optimizing techniques: automated exposure control, MA and/or KvP adjustment based on patient size and exam type or iterative reconstruction. HISTORY: Bladder cancer. COMPARISON: 07/25/2022 FINDINGS: There is no edema or pneumonia. No pleural effusion. No pneumothorax. There is a new 3.6 x 2.7 cm mass in the right middle lobe. Lungs are emphysematous. A few scattered calcified granulomas are unchanged. There is no axillary or supraclavicular lymphadenopathy. There is no mediastinal lymphadenopathy. A left-sided central venous catheter is present. Heart size is normal. There are no coronary artery calcifications. No pericardial effusion. Aorta is normal in caliber. There are unchanged small cysts in the liver. There is no biliary ductal dilation. Gallbladder is normal. Pancreas is normal. Spleen is normal. Adrenal glands are normal. There is atrophy left kidney. No suspicious renal lesions. There is no hydronephrosis. Urinary bladder is normal. Bowel is normal in caliber without obstruction or inflammation. No free fluid or air. No abdominal or pelvic lymphadenopathy. Aorta is normal in caliber without aneurysm. There are no suspicious osseus lesions. There is a small amount of fluid in the left iliopsoas bursa. IMPRESSION: 1. New 3.6 x 2.7 cm right middle lobe mass. Differential includes metastatic disease in the primary lung cancer. 2. No metastatic disease in the abdomen or pelvis. Dictated by: Dictated on workstation # [id number]
== END ==
LOC: RAD 10:00
PROVIDERS: ATTEND Internal Medicine Hematology & Oncology
DX: R91.8 Other nonspecific abnormal finding of lung field (principal); C67.9 Malignant neoplasm of bladder, unspecified
CPT/HCPCS: 71260; 74177

== ENCOUNTER 2023-04-19 10:02 | Outpatient (RCR) | payer MEDICAID ==
[2023-04-11 10:44] LABS: BASOPHILS % (AUTO) 1 % (0-10); EOSINOPHILS # (AUTO) 0.1 10^3/uL (0.0-0.3); EOSINOPHILS % (AUTO) 1 % (0-10); HEMATOCRIT 47 % (40-54); HEMOGLOBIN 16.3 g/dL (13.3-17.7); LYMPHOCYTES # (AUTO) 0.5 10^3/uL (1.0-4.0); LYMPHOCYTES % (AUTO) 7 % (12-44); MEAN CORPUSCULAR HEMOGLOBIN 32 pg (25-34); MEAN CORPUSCULAR HGB CONC 35 g/dL (32-36); MEAN CORPUSCULAR VOLUME 93 fL (80-99); MEAN PLATELET VOLUME 10.1 fL (9.0-12.2); MONOCYTES # (AUTO) 0.6 10^3/uL (0.0-1.0); MONOCYTES % (AUTO) 9 % (0-12); NEUTROPHILS # (AUTO) 5.5 10^3/uL (1.8-7.8); NEUTROPHILS % (AUTO) 83 % (42-75); PLATELET COUNT 259 10^3/uL (130-400); WHITE BLOOD COUNT 6.6 10^3/uL (4.3-11.0)
[2023-04-11 11:00] LABS: ALANINE AMINOTRANSFERASE 14 U/L (0-55); ALBUMIN 4.6 GM/DL (3.2-4.5); ALKALINE PHOSPHATASE 65 U/L (40-136); BILIRUBIN,TOTAL 0.5 MG/DL (0.1-1.0); BUN/CREATININE RATIO 15; CALCIUM 10.2 MG/DL (8.5-10.1); CARBON DIOXIDE 24 MMOL/L (21-32); CHLORIDE 104 MMOL/L (98-107); CREATININE SERUM 1.35 MG/DL (0.60-1.30); GFR ESTIMATED 59; GLUCOSE 111 MG/DL (70-105); POTASSIUM 4.6 MMOL/L (3.6-5.0); SODIUM 138 MMOL/L (135-145); TOTAL PROTEIN 8.2 GM/DL (6.4-8.2)
[2023-04-11 11:29] LABS: CLARITY,URINE CLEAR; COLOR,URINE YELLOW; GLUCOSE, URINE (UA) NEGATIVE (NEGATIVE); KETONES,URINE 1+ (NEGATIVE); LEUKOCYTE ESTERASE ,URINE 1+ (NEGATIVE); NITRITE,URINE NEGATIVE (NEGATIVE); PH,URINE 5.5 (5-9); PROTEIN,URINE 1+ (NEGATIVE)
[2023-04-11 11:30] VITALS: BP 130/88
[2023-04-11 11:40] LABS: BILIRUBIN,URINE 1+ (NEGATIVE)
[2023-04-11 11:43] LABS: BACTERIA,URINE NEGATIVE /HPF; RBC,URINE 0-2 /HPF
[~2023-04-19] VITALS: Ht 182.9 cm; Wt 74.0 kg
[~2023-04-19 10:02] MED LIST changes: +CIPROFLOXACIN IV 400MG/200ML 200 ML IV SCH; -HOLD METFORMIN - RECEIVED CONTRAST 20 ML VIAL IV SCH; -IOHEXOL 350 MG/ML 100 ML (OMNIPAQUE 350) VIAL IV ONE; -NS 100 ML (IVPB) BAG IV ONE; +NS IV 500 ML 500 ML IV ONE; +ONDANSETRON 4 MG/2 ML (SDV) Z0FRAN IVP ONE
== END 2023-04-27 | disposition home or self-care (01) ==
LOC: ONC 10:02
PROVIDERS: ATTEND Internal Medicine Hematology & Oncology
DX: Z45.2 Encounter for adjustment and management of vascular access device (principal); C67.9 Malignant neoplasm of bladder, unspecified; N39.0 Urinary tract infection, site not specified; D64.9 Anemia, unspecified
CPT/HCPCS: 80053; 81000; 85025; 96360; 96365; 96375; 96523

== ENCOUNTER 2023-04-25 10:48 | Outpatient (CLI) | payer MEDICAID ==
[2023-04-25] VITALS (13 sets, daily range): BP systolic 109–189; BP diastolic 62–93
[~2023-04-25] VITALS: Ht 185.5 cm; Wt 74.0 kg
[~2023-04-25 10:48] MED LIST changes: -CIPROFLOXACIN IV 400MG/200ML 200 ML IV SCH; -NS IV 500 ML 500 ML IV ONE; -ONDANSETRON 4 MG/2 ML (SDV) Z0FRAN IVP ONE
[2023-04-25 11:30] LABS: HEMATOCRIT 42 % (40-54); HEMOGLOBIN 14.3 g/dL (13.3-17.7); MEAN CORPUSCULAR HEMOGLOBIN 33 pg (25-34); MEAN CORPUSCULAR HGB CONC 34 g/dL (32-36); MEAN CORPUSCULAR VOLUME 95 fL (80-99); MEAN PLATELET VOLUME 9.9 fL (9.0-12.2); PLATELET COUNT 272 10^3/uL (130-400)
[2023-04-25 11:47] LABS: INR 0.9 (0.8-1.4); PROTHROMBIN TIME PATIENT 12.5 SEC (12.2-14.7)
[2023-04-25] MEDS ORDERED: LIDOCAINE 1% INJ 10 ML VIAL INJ ONE (12:00)
[2023-04-25] MEDS ORDERED: MIDAZOLAM 2 MG/2 ML (VERSED) VIAL IVP ONE (12:00)
[2023-04-25] MEDS ORDERED: NS IV 1000 ML 1,000 ML IV SCH (12:00)
[2023-04-25] MEDS ORDERED: fentaNYL INJ 100 MCG/2 ML AMP IVP ONE (12:00)
--- NOTE | 2023-04-25 15:04 | Pre-Op Note & Conscious Sedat ---
Pre-Operative Progress Note Date of Available H&P: Apr 25, 2023 Date H&P Reviewed: Apr 25, 2023 Time H&P Reviewed: 11:00 Pre-Op Diagnosis: lung mass Moderate Sedation PreProcedure Time 11:00 ASA Score 2 Airway Lungs Heart ASA score ASA 1: a normal healthy patient ASA 2: a patient with a mild systemic disease (mid diabetes, controlled hypertension, obesity ASA 3: a patient with a severe systemic disease that limits activity (angina, COPD, prior Myocardial infarction) ASA 4: a patient with an incapacitating disease that is a constant threat to life (CHF, renal failure) ASA 5: a moribund patient not expected to survive 24 hrs. (ruptured aneurysm) ASA 6: a declared brain- patient whose organs are being harvested. For emergent operations, add the letter E after the classification Mallampati Classification Grade 2 Sedation Plan Analgesia, Amnesia, Plan communicated to team members, Discussed options with patient/fam, Discussed risks with patient/fam The patient is an appropriate candidate to undergo the planned procedure, sedation, and anesthesia. The patient immediately re-assessed prior to indication. ANA MARÍA RED MD Apr 25, 2023 15:04
--- NOTE | 2023-04-25 15:52 | Diagnostic Imaging Report ---
INDICATION: Right lung mass. Patient presents for CT-guided biopsy. TECHNIQUE: All CT scans use one or more of the following dose optimizing techniques: automated exposure control, MA and/or KvP adjustment based on patient size and exam type or iterative reconstruction. The patient was brought to the CT suite and placed on the table in the supine position. Axial imaging through the chest was performed to evaluate appropriate entry site. The procedure was performed utilizing conscious sedation with radiology nursing and constant patient monitoring. Patient was given a total of 50 mcg of fentanyl intravenously and 1 mg of Versed intravenously. Total procedure time is approximately 10 minutes. Right chest was prepped and draped in the usual sterile fashion. Small amount of 1% lidocaine was utilized for local anesthesia. 18-gauge coaxial Temno needle was advanced from a right anterolateral approach and placed with its tip along the margin of the mass in the right middle lobe, total of 4 core biopsies were obtained. BioSentry closure device was placed during needle removal. Hemostasis was obtained using manual compression. Followup imaging demonstrates some mild perilesional hemorrhage. There is also very small pneumothorax. Patient tolerated procedure well and left the department in stable condition. IMPRESSION: Successful CT-guided biopsy of the right middle lobe mass utilizing conscious sedation. Pathology results are currently pending. Dictated by: Dictated on workstation # [id number]
--- NOTE | 2023-04-25 16:01 | Diagnostic Imaging Report ---
Indication: Right lung biopsy. Time of Exam: 3:24 PM Expiratory radiograph of the chest was obtained. There is a left chest wall port with tip overlying SVC. Rounded mass in the right base is again noted. There appears to be a very small right apical pneumothorax, less than 10%. Left lung is clear. Impression: Small right apical pneumothorax, status post right lung biopsy. Dictated by: Dictated on workstation # [id number]
== END 2023-04-25 16:15 | disposition home or self-care (01) ==
LOC: SDC 10:48
PROVIDERS: ATTEND Internal Medicine Hematology & Oncology
DX: C78.00 Secondary malignant neoplasm of unspecified lung (principal); C7A.8 Other malignant neuroendocrine tumors; J93.9 Pneumothorax, unspecified; R91.8 Other nonspecific abnormal finding of lung field; Z98.890 Other specified postprocedural states
CPT/HCPCS: 36415; 71045; 77012; 85027; 85610; 85730; 96523; 99156

== ENCOUNTER 2023-05-24 09:15 | Outpatient (RCR) | payer MEDICAID ==
[2023-04-11 11:30] VITALS: BP 130/88
[2023-04-30 10:39] LABS: BASOPHILS # (AUTO) 0.1 10^3/uL (0.0-0.1); BASOPHILS % (AUTO) 1 % (0-10); EOSINOPHILS # (AUTO) 0.2 10^3/uL (0.0-0.3); EOSINOPHILS % (AUTO) 3 % (0-10); HEMATOCRIT 43 % (40-54); HEMOGLOBIN 14.4 g/dL (13.3-17.7); LYMPHOCYTES % (AUTO) 16 % (12-44); MEAN CORPUSCULAR HEMOGLOBIN 32 pg (25-34); MEAN CORPUSCULAR HGB CONC 34 g/dL (32-36); MEAN CORPUSCULAR VOLUME 95 fL (80-99); MEAN PLATELET VOLUME 9.8 fL (9.0-12.2); MONOCYTES # (AUTO) 0.6 10^3/uL (0.0-1.0); MONOCYTES % (AUTO) 10 % (0-12); NEUTROPHILS # (AUTO) 4.7 10^3/uL (1.8-7.8); NEUTROPHILS % (AUTO) 71 % (42-75); PLATELET COUNT 243 10^3/uL (130-400); WHITE BLOOD COUNT 6.7 10^3/uL (4.3-11.0)
[2023-04-30 10:55] LABS: ALBUMIN 4.3 GM/DL (3.2-4.5); BILIRUBIN,TOTAL 0.5 MG/DL (0.1-1.0); CALCIUM 9.7 MG/DL (8.5-10.1); CREATININE SERUM 1.3 MG/DL (0.60-1.30); TOTAL PROTEIN 7.5 GM/DL (6.4-8.2)
== END 2023-05-28 | disposition home or self-care (01) ==
LOC: ONC 09:15
PROVIDERS: ATTEND Internal Medicine Hematology & Oncology
DX: Z51.11 Encounter for antineoplastic chemotherapy (principal); C67.9 Malignant neoplasm of bladder, unspecified; N39.0 Urinary tract infection, site not specified; D64.9 Anemia, unspecified
CPT/HCPCS: 36415; 80053; 85025

== ENCOUNTER 2023-05-31 09:23 | Outpatient (RCR) | payer MEDICAID, OTHER ==
[2023-04-11 11:30] VITALS: BP 130/88
== END 2023-06-28 | disposition home or self-care (01) ==
LOC: ONC 09:23
PROVIDERS: ATTEND Internal Medicine Hematology & Oncology
DX: C67.9 Malignant neoplasm of bladder, unspecified (principal); N39.0 Urinary tract infection, site not specified; D64.9 Anemia, unspecified
CPT/HCPCS: 99214

== ENCOUNTER → 2023-08-15 | Outpatient (CLI) | payer OTHER ==
[~2023-08-15] MED LIST changes: +GADOTERATE 0.5 MMOL/ML (CLARISCAN) 20 ML VIAL IV ONE
--- NOTE | 2023-08-15 12:04 | Diagnostic Imaging Report ---
CLINICAL INDICATION: Patient has history of bladder cancer. Patient is having headaches. EXAM: MRI of the brain performed without and with 14 cc of Clariscan IV contrast. Sequences include axial DWI, ADC map, coronal gradient echo, axial T2, axial FLAIR, axial T1, axial T1 post IV contrast, coronal T1 fat-sat post IV contrast, and sagittal T1 post IV contrast. COMPARISON: None. FINDINGS: There is no evidence of acute cerebral infarct, intracranial hemorrhage, or gross mass effect. The brain parenchymal volume appears appropriate for patient's age. There is a nonspecific focal area of high T2 signal white matter lesion involving the right parietal region. There is normal lopez-white matter distinction. There is no significant midline shift or herniation. The visualized [place] vascular structures are unremarkable. The pituitary gland, sella, and suprasellar regions are unremarkable as visualized. There is no evidence of hydrocephalus. The basal cisterns are unremarkable. The skull, extracranial soft tissue, and orbits are unremarkable. There is minimal mucosal thickening involving the ethmoid sinus and both maxillary sinuses. Temporal bones show no significant abnormality. IMPRESSION: 1: There is no evidence of acute intracranial process. There is no abnormal IV contrast enhancement. 2: There are mild age-related brain parenchymal changes. 3: There is a focal area of high T2 signal involving the white matter of the right parietal lobe region which is nonspecific. Chronic small vessel ischemic disease may be considered. Dictated by: Dictated on workstation # [id number]
== END ==
LOC: RAD 10:57
PROVIDERS: ATTEND Internal Medicine Hematology & Oncology
DX: C67.9 Malignant neoplasm of bladder, unspecified (principal)
CPT/HCPCS: 70553

== ENCOUNTER → 2023-08-16 | Outpatient (CLI) | payer OTHER ==
[~2023-08-16] MED LIST changes: +CATHETER FLUSH 10 ML SYR IVP PRN; -GADOTERATE 0.5 MMOL/ML (CLARISCAN) 20 ML VIAL IV ONE
--- NOTE | 2023-08-16 16:03 | Diagnostic Imaging Report ---
INDICATION: Initial staging malignant poorly differentiated neuroendocrine tumor. Serum blood glucose level at the time of injection is 88 mg/dL. The patient was administered 10.6 mCi F-18 FDG intravenously in the right antecubital location and PET imaging was performed from the top of the skull to mid thighs. Noncontrast CT was also performed for attenuation correction and anatomic correlation. No prior PET/CT studies are available for comparison. Comparison is made with conventional CT chest, abdomen and pelvis study from 04/18/2023. There is symmetric activity throughout the brain. The soft tissues of the neck are unremarkable. There is hypermetabolism involving the mass involving the right middle lobe with an SUV max of 25.4. There are also some hypermetabolic lymph nodes in the right hilum with an SUV max of 6.0. A hypermetabolic node subcarinal right hilar region demonstrates an SUV max of 7.8. The left hilum is unremarkable. The abdomen and pelvis demonstrate physiologic activity throughout the gastrointestinal and genitourinary tract. No suspicious hypermetabolic foci are detected. IMPRESSION: Hypermetabolic mass right middle lobe with hypermetabolic right hilar lymph nodes consistent with hilar metastatic disease. No other significant abnormality is detected.. Dictated by: Dictated on workstation # [id number]
== END ==
LOC: RAD 10:33
PROVIDERS: ATTEND Internal Medicine Hematology & Oncology
DX: C67.8 Malignant neoplasm of overlapping sites of bladder (principal); R91.8 Other nonspecific abnormal finding of lung field
CPT/HCPCS: 78815; 82947; A9552

== ENCOUNTER 2023-08-20 10:58 | Outpatient (RCR) | payer OTHER ==
[2023-04-11 11:30] VITALS: BP 130/88
[~2023-08-20 10:58] MED LIST changes: -CATHETER FLUSH 10 ML SYR IVP PRN
== END 2023-08-28 | disposition home or self-care (01) ==
LOC: ONC 10:58
PROVIDERS: ATTEND Internal Medicine Hematology & Oncology
DX: Z45.2 Encounter for adjustment and management of vascular access device (principal); C67.9 Malignant neoplasm of bladder, unspecified; N39.0 Urinary tract infection, site not specified; D64.9 Anemia, unspecified
CPT/HCPCS: 96523; 99214

== ENCOUNTER 2023-08-29 09:39 | Outpatient (CLI) | payer SELFPAY ==
[2023-08-29] VITALS (9 sets, daily range): BP systolic 109–146; BP diastolic 65–86
[~2023-08-29] VITALS: Ht 190 cm; Wt 74.0 kg
[2023-08-29 10:37] LABS: HEMATOCRIT 41 % (40-54); HEMOGLOBIN 13.9 g/dL (13.3-17.7); MEAN CORPUSCULAR HEMOGLOBIN 32 pg (25-34); MEAN CORPUSCULAR HGB CONC 34 g/dL (32-36); MEAN CORPUSCULAR VOLUME 93 fL (80-99); MEAN PLATELET VOLUME 9.6 fL (9.0-12.2); PLATELET COUNT 355 10^3/uL (130-400); WHITE BLOOD COUNT 7.2 10^3/uL (4.3-11.0)
[2023-08-29] MEDS: NS IV 1000 ML 1,000 ML IV STA (11:52)
[2023-08-29] MEDS: MIDAZOLAM INJ 2 MG/2 ML VIAL IVP ONE (11:55)
[2023-08-29] MEDS: fentaNYL INJECTION 100 MCG/2 ML VIAL IVP ONE (11:55)
[2023-08-29] MEDS: LIDOCAINE 1% INJ 10 ML VIAL INJ ONE (11:55)
--- NOTE | 2023-08-29 12:32 | Diagnostic Imaging Report ---
INDICATION: Right lung mass. Patient presents for CT-guided biopsy. DETAILS OF THE PROCEDURE: The patient was brought to the CT suite and placed on the table in the supine position. Axial imaging through the chest was performed to evaluate for an appropriate entry site. The lower right chest was prepped and draped in the usual sterile fashion. A small amount of 1% lidocaine was utilized for local anesthesia. The procedure was performed utilizing conscious sedation with Radiology nursing and constant patient monitoring. The patient was given a total of 50 mcg of fentanyl intravenously and 1 mg of Versed intravenously. The total procedure time was approximately 8 minutes. An 18-gauge coaxial Temno needle was advanced from a right anterolateral approach and placed within the mass in the right lower lobe. Multiple core biopsies were obtained. The needle was removed during BioSentry closure device placement. Followup imaging demonstrates a very small right basilar pneumothorax. The patient tolerated the procedure well and left the Department in stable condition. IMPRESSION: Successful CT-guided right lower lobe lung mass biopsy utilizing conscious sedation. Pathology results are currently pending. Dictated by: Dictated on workstation # [id number]
[2023-08-29] MEDS ORDERED: HYDROcodone/ACETAMINOPHEN 5 MG/325 MG TABLET PO PRN (12:45)
--- NOTE | 2023-08-29 14:46 | Diagnostic Imaging Report ---
Indication: Right lung mass, status post right lung biopsy. Time of Exam: 1:53 PM There is a tiny right apical pneumothorax, status post right lung biopsy. Mass in the right lower lobe is again noted, increased since the chest radiograph from March 2023. Left chest wall port is tip overlying SVC right atrial junction. IMPRESSION: Tiny right apical pneumothorax, status post right lung biopsy. Dictated by: Dictated on workstation # [id number]
== END 2023-08-29 15:33 ==
LOC: SDC 09:39
PROVIDERS: ATTEND Internal Medicine Hematology & Oncology
DX: R91.8 Other nonspecific abnormal finding of lung field (principal); Z98.890 Other specified postprocedural states
CPT/HCPCS: 71045; 77012; 85027; 85610; 85730; 99156; C2613; 36415

== ENCOUNTER 2023-09-26 09:43 | Outpatient (RCR) | payer MEDICAID ==
[2023-04-11 11:30] VITALS: BP 130/88
--- NOTE | 2023-08-29 12:17 | Pre-Op Note & Conscious Sedat ---
Pre-Operative Progress Note Date of Available H&P: Aug 29, 2023 Date H&P Reviewed: Aug 29, 2023 Time H&P Reviewed: 11:00 Pre-Op Diagnosis: lung mass Moderate Sedation PreProcedure Time 11:00 ASA Score 2 Airway Lungs Heart ASA score ASA 1: a normal healthy patient ASA 2: a patient with a mild systemic disease (mid diabetes, controlled hypertension, obesity ASA 3: a patient with a severe systemic disease that limits activity (angina, COPD, prior Myocardial infarction) ASA 4: a patient with an incapacitating disease that is a constant threat to life (CHF, renal failure) ASA 5: a moribund patient not expected to survive 24 hrs. (ruptured aneurysm) ASA 6: a declared brain- patient whose organs are being harvested. For emergent operations, add the letter E after the classification Mallampati Classification Grade 2 Sedation Plan Analgesia, Amnesia, Plan communicated to team members, Discussed options with patient/fam, Discussed risks with patient/fam The patient is an appropriate candidate to undergo the planned procedure, sedation, and anesthesia. The patient immediately re-assessed prior to indication. ANA MARÍA RED MD Aug 29, 2023 12:17
== END 2023-09-27 ==
LOC: ONC 09:43
PROVIDERS: ATTEND Internal Medicine Hematology & Oncology
DX: C67.9 Malignant neoplasm of bladder, unspecified (principal)
CPT/HCPCS: 99214

== ENCOUNTER 2023-09-27 05:34 | Outpatient (CLI) | payer MEDICAID ==
[~2023-09-27] VITALS: Ht 182.9 cm; Wt 76.8 kg
== END 2023-09-27 13:21 | disposition home or self-care (01) ==
LOC: PREOP 05:34
PROVIDERS: ATTEND Specialist
DX: Z01.818 Encounter for other preprocedural examination (principal)

== ENCOUNTER 2023-10-04 05:58 | Day surgery (SDC) | payer MEDICAID ==
[~2023-10-04] VITALS: Ht 182.9 cm; Wt 76.8 kg
[2023-10-04] VITALS (10 sets, daily range): BP systolic 89–118; BP diastolic 50–79
[2023-10-04] MEDS ORDERED: LACTATED RINGERS 1,000 ML 1,000 ML IV PRN (07:00)
[2023-10-04] MEDS ORDERED: ONDANSETRON INJECTION 4 MG/2 ML (SDV) ONE (07:05)
[2023-10-04] MEDS ORDERED: fentaNYL INJECTION 100 MCG/2 ML VIAL ONE (07:05)
[2023-10-04] MEDS ORDERED: proPOfol INJECTION 200 MG/20 ML VIAL IV ONE (07:05)
[2023-10-04] MEDS ORDERED: LIDOCAINE PF 2% 5 ML VIAL ONE (07:05)
[2023-10-04] MEDS ORDERED: MIDAZOLAM INJ 2 MG/2 ML VIAL ONE (07:05)
--- NOTE | 2023-10-04 08:00 | Progress Note-Pre Operative ---
Pre-Operative Progress Note Date of Available H&P: Sep 26, 2023 Date H&P Reviewed: Oct 04, 2023 Time H&P Reviewed: 08:00 History & Physical: H&P Reviewed, No changes noted Pre-Operative Diagnosis: h/o bladder cancer Albino MOLINA MD Oct 04, 2023 08:00
[2023-10-04] MEDS ORDERED: SEVOFLURANE (ULTANE) 15 ML INHAL SOLN ONE (08:22)
--- NOTE | 2023-10-04 08:32 | Progress Note-Post Operative ---
Post-Operative Progess Note Surgeon (s)/Traffic Routing Engineer (s) Surgeon Albino MOLINA MD Traffic Routing Engineer n/a Pre-Operative Diagnosis h/o bladder cancer Post-Operative Diagnosis same Post-Op Procedure Note Date of Procedure: Oct 04, 2023 Name of Procedure Performed: cystoscopy and bladder washing for cytology Description & Findings Description and Findings: n/a Anesthesia Type general Estimated Blood Loss minimal Packing none. Specimen(s) collected/removed urine for cytology Albino MOLINA MD Oct 04, 2023 08:32
[2023-10-04] MEDS ORDERED: morphine INJ 10 MG/ML 1ML (SYR OR VIAL) IVP ONE (08:45)
[2023-10-04] MEDS ORDERED: ONDANSETRON INJECTION 4 MG/2 ML (SDV) IVP PRN (08:45)
--- NOTE | 2023-10-04 10:33 | Anesthesia-General Post-Op ---
General Patient Condition Mental Status/LOC: Same as Preop Cardiovascular: Satisfactory Nausea/Vomiting: Absent Respiratory: Satisfactory Pain: Controlled Complications: Absent Post Op Complications Complications None Follow Up Care/Instructions Patient Instructions None needed. Anesthesia/Patient Condition Patient Condition Patient is doing well, no complaints, stable vital signs, no apparent adverse anesthesia problems. No complications reported per nursing. ALEX STUART CRNA Oct 04, 2023 10:33
--- NOTE | 2023-10-04 17:51 | OPERATIVE REPORT ---
DATE OF SERVICE: 10/04/2023 PREOPERATIVE DIAGNOSIS: Invasive bladder cancer. POSTOPERATIVE DIAGNOSIS: Invasive bladder cancer. PROCEDURE PERFORMED: Cystoscopy and barbotage washing of bladder. INDICATIONS FOR SURGERY: The patient has a history of invasive bladder cancer, status post radiation in 2020. He is here for surveillance cystoscopy. DESCRIPTION OF PROCEDURE: After informed consent was obtained, a general anesthetic was administered. The patient was placed in dorsal lithotomy position, prepped and draped. Cystoscopy with 23 [place] cystoscope sheath and 30 and 70 degree lens was performed. Urethra was without strictures. Prostatic urethra showed trilobar hypertrophy and large median lobe panendoscopy of bladder revealed scar tissue on the left side of the trigone. The ureteral orifice appeared open. The right ureteral orifice appeared normal. Panendoscopy of bladder revealed no tumors or stones. There is telangiectasia consistent with prior radiation to the bladder. Barbotage urine was obtained for cytology. The bladder was drained. The patient was taken to the recovery room. He will be discharged home after he recovers from anesthesia. Plan will be to follow up in 6 months for surveillance cystoscopy. Job ID: [id number] DocumentID: [id number] Dictated Date: 10/04/2023 08:29:46 Aging Box Hand Date: 10/04/2023 17:50:00 Dictated By: Faizan MOLINA MD
== END 2023-10-04 10:05 | disposition home or self-care (01) ==
LOC: SDC 05:58
PROVIDERS: ATTEND Specialist
DX: C67.9 Malignant neoplasm of bladder, unspecified (principal); F17.210 Nicotine dependence, cigarettes, uncomplicated; Z92.21 Personal history of antineoplastic chemotherapy; Z92.3 Personal history of irradiation
CPT/HCPCS: 87081